=== PATIENT | female | born 1980 | race Caucasian/White ===

== ENCOUNTER 2020-04-18 08:09 | Emergency (ER) | payer OTHER, SELFPAY ==
--- NOTE | 2020-04-18 08:16 | ED.GENADULT ---
HPI - General Adult General Chief complaint: Skin/Abscess/Foreign Body Stated complaint: possible spider bite Time Seen by Provider: 04/18/20 08:28 Source: patient Mode of arrival: ambulatory Limitations: no limitations History of Present Illness HPI narrative: 3-year-old female patient presents to the [facility] with complaints of a wound to the middle of her back for x1 week. Patient states that she has not been able to reach the back so she has been putting anything on it. Patient states that she is not sure if it is a spider bite but it is causing increasing pain. Denies taking anything for the pain. Patient denies ever having an abscess before in the past. Patient denies any fevers, fatigue or body aches. Related Data Allergies Allergy/AdvReac Type Severity Reaction Status Date / Time famotidine Allergy Unknown Unknown Verified 02/08/20 09:49 Review of Systems Review of Systems: Narrative: CONSTITUTIONAL: Denies fever, chills, or sweats. EYES: Denies visual changes, redness, or discharge. ENT: Denies rhinorrhea, congestion, sore throat, or otalgia. CARDIOVASCULAR: Denies chest pain, palpitations, or edema. RESPIRATORY: Denies cough or dyspnea. GASTROINTESTINAL: Denies abdominal pain, nausea, vomiting, or diarrhea. GENITOURINARY: Denies dysuria or hematuria. SKIN: Denies rash or itching. Positive wound to middle of the back x1 week MUSCULOSKELETAL: Denies back pain, joint pain, or myalgia. NEUROLOGIC: Denies headache, numbness, or weakness. PSYCHIATRIC: Denies anxiety or depression. [facility] Past Medical History Medical History Cholecystectomy planned Surgical History Surgical History H/O dilation and curettage H/O tubal ligation Family History Family History Mother Family history of malignant neoplasm of uterus Family history of malignant neoplasm of ovary Other Family history of malignant neoplasm Social History Social History Smoking status: Current every day smoker Alcohol intake: never Gender identity (if verbalized by the patient): Female Comments At the time of my signature I agree with nursing past medical history, surgical, social, and family history. There is no relevant family history pertinent to the presenting complaint. Exam Narrative: Exam Narrative: GENERAL: Well-appearing, well-nourished, and in no acute distress. HEAD: Normocephalic, atraumatic. EYES: PERRLA and EOMI. ENT: Nares clear, no rhinorrhea or epistaxis. Mucous membranes moist. NECK: Supple. No lymphadenopathy CHEST: Clear to auscultation. No respiratory distress. HEART: Regular rate and rhythm. No murmur heard. Normal peripheral pulses. ABDOMEN: Soft, nontender, nondistended, normal active bowel sounds. EXTREMITIES: Normal range of motion. No edema. SKIN: Warm, dry, no rash. Patient has approximately 5 x 4 cm express care abscess noted to the middle of her back. It does feel slightly warm to the touch is raised with a located center. There is no open wounds or drainage noted at this time. NEURO: No focal deficits. Alert and oriented x3. Course Vital Signs Vital signs: Vital Signs Temperature 36.9 C 04/18/20 08:22 Pulse Rate 83 04/18/20 08:22 Respiratory Rate 16 04/18/20 08:22 Blood Pressure 106/89 04/18/20 08:22 Pulse Oximetry 100 04/18/20 08:22 Temperature 36.9 C 04/18/20 08:22 Pulse Rate 83 04/18/20 08:22 Respiratory Rate 16 04/18/20 08:22 Blood Pressure 106/89 04/18/20 08:22 Pulse Oximetry 100 04/18/20 08:22 Vital signs reviewed. Procedures Abscess I/D back: Date of Incision: 04/18/20 Time of Incision: 08:45 Local Anesthetic: lidocaine 1% Amount of anesthesia used (mL): 3 Technique: incised with #11 blade Irrigati
[2020-04-18 08:22] VITALS: BP 106/89; PULSE 83; RESP 16; TEMP 36.9; O2SAT 100
== END 2020-04-18 08:52 | disposition home or self-care (01) ==
PROVIDERS: Emergency Provider Nurse Practitioner Family; PCP Internal Medicine
DX: L02.212 Cutaneous abscess of back [any part, except buttock and flank] (principal)
CPT/HCPCS: 10061; 87070; 87075; 87076; 87205; 99213; G0463

== ENCOUNTER 2020-09-04 14:59 | Emergency (ER) | payer OTHER, SELFPAY ==
[2020-09-04 15:12] VITALS: BP 125/74; PULSE 109; RESP 16; TEMP 37.7; O2SAT 99
--- NOTE | 2020-09-04 15:12 | PC.NURSE ---
pt c/o LLQ abd pain and states it is not a UTI. pt states she will not stay here if we cannot test her appropriately. pt wishes to leave clinic and go to ED. Left the clinic from triage room
== END 2020-09-04 15:15 | disposition left against medical advice (07) ==
PROVIDERS: Emergency Provider Nurse Practitioner Family; PCP Internal Medicine
DX: Z53.21 Procedure and treatment not carried out due to patient leaving prior to being seen by health care provider (principal)
CPT/HCPCS: 99199

== ENCOUNTER 2021-03-02 18:04 | Emergency (ER) | payer SELFPAY ==
[2021-03-02 18:21] VITALS: BP 144/99; PULSE 108; RESP 18; TEMP 37; O2SAT 97
[2021-03-02 18:37] LABS: Basophils Percent Auto 0.4 % (0.2-1.2); Eosinophils Absolute Auto 0.2 K/mm3 (0-0.3); Eosinophils Percent Auto 2.2 % (0-4.4); Hematocrit 28.9 % (37.0-47.0); Hemoglobin 8.3 g/dL (12.0-15.0); Immature Granulocyte Absolute 0.05 K/mm3 (0.00-0.031); Immature Granulocyte Percent A 0.5 % (0-0.5); Lymphocytes Absolute Auto 2.15 K/mm3 (0.9-3.2); Lymphocytes Percent Auto 20.9 % (18.3-44.2); Mean Corpuscular HGB Conc 28.7 g/dl (32-36); Mean Corpuscular Hemoglobin 20.6 pg (26-34); Mean Corpuscular Volume 71.7 fl (80-100); Mean Platelet Volume 10.6 fl (7.4-10.4); Monocytes Absolute Auto 0.6 K/mm3 (0.1-0.6); Monocytes Percent Auto 5.3 % (2.6-8.5); Neutrophils Absolute Auto 7.3 K/mm3 (1.3-6.7); Neutrophils Percent Auto 70.7 % (45.5-73.1); Platelet Count Result 328 k/mm3 (150-375); Red Blood Count 4.03 M/mm3 (4.2-5.4); Red Cell Distribution Width 18.5 % (11.5-14.5); White Blood Count 10.3 K/mm3 (4.5-10.0)
[2021-03-02 18:46] LABS: Platelet Estimate Adequate (Adequate)
[2021-03-02 18:47] LABS: Hypochromasia 1+ (NORMAL)
[2021-03-02 19:05] LABS: Beta HCG Quantitative < 2.39 mIU/ML
--- NOTE | 2021-03-02 21:00 | PC.NURSE ---
Called lab to add on pt ptt and cmp
--- NOTE | 2021-03-02 21:02 | PC.NURSE ---
pt ambulatory to ED H3. c/o heavy vaginal bleeding x 4-5 days with clots larger than a quarter. also c/o lower abd cramping, left worse than right. hx of tubal ligation 12 years ago. denies home meds. denies past medical hx. last pap 12 years ago per pt.
[2021-03-02 21:06] VITALS: BP 150/113; PULSE 118; RESP 20; O2SAT 99
--- NOTE | 2021-03-02 21:15 | ED.FEMALEGU ---
HPI - Female Genitourinary General Chief complaint: Vaginal Bleeding Stated complaint: heavy vaginal bleeding Time Seen by Provider: 03/02/21 21:04 Source: patient Mode of arrival: ambulatory Limitations: no limitations History of Present Illness HPI Narrative: Patient is a 40-year-old female complaining of vaginal bleeding accompanied by lower abdominal cramping x4 days. Related Data Allergies Allergy/AdvReac Type Severity Reaction Status Date / Time famotidine Allergy Unknown Rash Verified 03/02/21 18:25 Review of Systems Review of Systems: All systems reviewed & are unremarkable except as noted in HPI and below Constitutional: Constitutional: Denies body ache(s), Denies chills, Denies excessive sweating, Denies fatigue, Denies fever(s), Denies headache(s), Denies lethargy, Denies malaise, Denies weakness and Denies weight loss Eyes: Eyes: Denies blurry vision, Denies change in vision and Denies loss of vision ENT: Denies dizziness, Denies ear discharge, Denies headache(s), Denies lip swelling, Denies epistaxis, Denies nasal congestion, Denies neck pain, Denies throat swelling and Denies tongue swelling Cardiovascular: Cardiovascular: Denies chest pain, Denies chest pain at rest, Denies chest pain with activity, Denies diaphoresis, Denies rapid heart rate, Denies edema, Denies irregular heart rhythm, Denies lightheadedness, Denies palpitations, Denies dyspnea and Denies dyspnea on exertion Respiratory: Respiratory: Denies chest congestion, Denies cough, Denies hemoptysis, Denies dyspnea and Denies dyspnea on exertion Gastrointestinal: Gastrointestinal: Denies abdominal pain, Denies melena, Denies hematochezia, Denies diarrhea, Denies nausea, Denies vomiting and Denies hematemesis Musculoskeletal: Musculoskeletal: Denies abnormal gait, Denies deformity, Denies joint swelling, Denies limited range of motion, Denies neck pain and Denies numbness Neurologic: Denies Abnormal speech present, Denies abnormal gait, Denies confusion, Denies dizziness, Denies headache(s), Denies focal weakness, Denies loss of vision, Denies numbness, Denies Other visual disturbances, Denies Sensory deficit (Neuro) and Denies weakness Psychiatric: Psychiatric: Denies confusion, Denies depression, Denies auditory hallucinations, Denies homicidal ideation and Denies suicidal ideation Endocrine: Endocrine: Denies cold intolerance, Denies excessive sweating, Denies fatigue, Denies heat intolerance and Denies palpitations Allergic/Immunologic: Allergic/Immunologic: Denies lip swelling, Denies throat swelling and Denies tongue swelling PMFSH Past Medical History Medical History (Updated 03/02/21 @ 23:15 by Hu Matt MD) Cholecystectomy planned Surgical History Surgical History H/O dilation and curettage H/O tubal ligation Family History Family History Mother Family history of malignant neoplasm of uterus Family history of malignant neoplasm of ovary Other Family history of malignant neoplasm Social History Social History Smoking status: Current every day smoker Alcohol intake: never Gender identity (if verbalized by the patient): Female Exam Const: General: cooperative, healthy appearing, comfortable, no acute distress, well developed, alert and awake; No confusion Orientation/consciousness: oriented to person, oriented to place, oriented to time, patient oriented x3 and No confusion Limitations: no limitations HENMT: Head: normal to inspection, normocephalic and atraumatic Ears: hearing grossly normal bilaterally, TM normal on the right and TM normal on the left General nose exam: Normal external nose present, Normal nares present and No nasal discharge present Face and sinus: normal facial exam Mouth: Yes Normal oral and palatal mucosa present, Yes lip misa
[2021-03-02 21:22] VITALS: BP 130/74; PULSE 74; O2SAT 100
[2021-03-02] MEDS: SODIUM CHLORIDE 0.9% IV 1,000 ML 999 ML IV CONT (21:39)
--- NOTE | 2021-03-02 22:26 | PC.NURSE ---
this RN called lab again to have them add on PT, PTT, CMP.
[2021-03-02 22:27] VITALS: BP 120/57; PULSE 75; RESP 18; O2SAT 100
[2021-03-02 22:38] LABS: Alanine Aminotransferase 14 U/L (4-35); Alkaline Phosphatase 95 U/L (38-126); Anion Gap 9 mmol/L (8-16); Aspartate Amino Transferase 21 U/L (14-36); Bilirubin,Total 0.1 mg/dL (0.2-1.3); Blood Urea Nitrogen 9 mg/dL (7-17); Calcium 8.8 mg/dL (8.4-10.2); Carbon Dioxide 22 mmol/L (22-30); Chloride 108 mmol/L (98-107); Estimated CRCL calculation 130 ml/min; Estimated Glomerular Filt Rate > 60; Glucose 115 mg/dL (65-105); Potassium 3.8 mmol/L (3.4-5.0); Sodium 139 mmol/L (137-145)
[2021-03-02 22:40] LABS: INR 0.9; Partial Thromboplastin Time 31.1 SECONDS (22.3-36.8)
== END 2021-03-03 00:16 | disposition home or self-care (01) ==
PROVIDERS: Emergency Medicine; Emergency Provider Emergency Medicine; PCP Internal Medicine
DX: N93.8 Other specified abnormal uterine and vaginal bleeding (principal); F17.200 Nicotine dependence, unspecified, uncomplicated
CPT/HCPCS: 36415; 80053; 84702; 85025; 85461; 85610; 85730; 96360; 99283; J7030

== ENCOUNTER 2022-08-27 17:51 | Emergency (ER) | payer SELFPAY ==
[2022-08-27 18:17] VITALS: BP 146/89; PULSE 89; RESP 16; TEMP 37.2; O2SAT 98
--- NOTE | 2022-08-27 19:15 | ED.GENADULT ---
HPI - General Adult General Chief complaint: Upper Respiratory Infection Stated complaint: sore throat Time Seen by Provider: 08/27/22 19:00 Source: patient, RN notes reviewed and old records reviewed Mode of arrival: ambulatory Limitations: no limitations History of Present Illness HPI narrative: 42-year-old female who presents to [facility] care with complaints of sore throat, headache, runny nose, body aches, chills, ear pain, cough, and nausea since Wednesday. Patient reports that she has been taking Ibuprofen and NyQuil for her symptoms, reports that she has not had COVID immunizations or flu shot. 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 MD complaint: sore throat, body aches, chills, headache, nausea, rhinitis, cough,ear pain Onset (ago): day(s) (2) Severity scale (1-10): 5 Quality: aching Treatments prior to arrival: NSAID and other (nyquil) Related Data Allergies Allergy/AdvReac Type Severity Reaction Status Date / Time famotidine Allergy Unknown Rash Verified 08/27/22 18:38 Review of Systems Review of Systems: CONSTITUTIONAL:Reports she has felt feverish, had chills or sweats. EYES: Denies visual changes, redness, or discharge. ENT: positive for rhinorrhea,sinus congestion, sore throat,bilateral otalgia. CARDIOVASCULAR: Denies chest pain, palpitations, or edema. RESPIRATORY: Positive for cough denies any acute dyspnea. GASTROINTESTINAL: Denies abdominal pain, nausea, vomiting, or diarrhea. GENITOURINARY: Denies dysuria or hematuria. SKIN: Denies rash or itching. MUSCULOSKELETAL: Denies back pain, joint pain, positive for body aches NEUROLOGIC: Positive for headache,no numbness, or weakness. PSYCHIATRIC: Denies anxiety or depression. All systems reviewed & are unremarkable except as noted in HPI and below PMFSH Past Medical History Medical History (Updated 08/31/22 @ 11:18 by Teresa Sauceda NP) Cholecystectomy planned Closed left ankle fracture Surgical History Surgical History (Updated 08/31/22 @ 11:03 by Teresa Sauceda NP) H/O dilation and curettage H/O tubal ligation History of cholecystectomy Family History Family History (Updated 08/31/22 @ 11:16 by Teresa Sauceda NP) Mother Family history of malignant neoplasm of uterus Family history of malignant neoplasm of ovary Grandparent Cerebrovascular accident Other Family history of malignant neoplasm Social History Social History (Updated 08/31/22 @ 11:21 by Teresa Sauceda NP) Smoking status: Former smoker Additional smoking assessment comments: quit 1 year ago 2020 Alcohol intake: never Substance use type: does not use Gender identity (if verbalized by the patient): Female Comments At time of signature, agree with nursing past medical, surgical, social and family history. There is no relevant family history pertinent to the presenting complaint Exam Narrative: GENERAL:ill-appearing, well-nourished,obese and in no acute distress. HEAD: Normocephalic, atraumatic. EYES: PERRLA and EOMI. ENT: Nares with red membranes clear rhinorrhea no epistaxis. Mucous membranes moist.TM's normal with good light reflex, throat with some redness no lesions or swelling,post nasal drainage. NECK: Supple.no lymphadenopathy CHEST: Clear to auscultation. No respiratory distress.SAO2 98% on room air, frequent cough HEART: Regular rate and rhythm. No murmur heard. Normal peripheral pulses. ABDOMEN: Soft, nontender, nondistended, normal active bowel sounds. EXTREMITIES: Normal range of motion. No edema. SKIN: Warm, dry, no rash. NEURO: No focal deficits. Alert and oriented x3. Course Course Level of Care: Express Care Visit Vital Signs Vital signs: Vital Signs Temperature 37.2 C 08/27/22 18:17 Pulse Rate 89 08/27/22 18:17 Respiratory Rate 16 08/27/22 18:17 Blood Pressure 146/89 H 08/27/22 18:17 Pulse Oximetry 98 08/27/22 18:17 Oxygen Delivery Room Air 08/27/22 18:17 Temperature 37.2 C 08/27/22 18:17 Pulse Rate 89 /
== END 2022-08-27 19:39 | disposition home or self-care (01) ==
PROVIDERS: Emergency Provider Registered Nurse; PCP Internal Medicine
DX: J10.1 Influenza due to other identified influenza virus with other respiratory manifestations (principal); Z20.822 Contact with and (suspected) exposure to COVID-19; Z87.891 Personal history of nicotine dependence
CPT/HCPCS: 87426; 87804; 99213; C9803; G0463

== ENCOUNTER 2023-08-27 10:40 | Outpatient (CLI) | payer OTHER, SELFPAY ==
--- NOTE | 2023-08-31 12:05 | WPDHOLTEREM ---
Holter/Event Monitor Holter/Event Monitor Date of procedure: 08/27/23 Holter/Event Procedure: 48 Hr Holter Monitor Indications: Syncope Conclusion: 1. 48 hour holter monitor on 08/27/23. 2. Underlying rhythm is sinus rhythm. HR range 41-164 bpm; average HR 76 bpm. HR at 41 bpm was at 06:30. HR at 164 bpm was at 14:29. 3. There are 84 premature supraventricular complexes, 12 supraventricular couplets, 1 supraventricular triplet and 3 supraventricular bigeminy. No supraventricular tachycardia. 4. No premature ventricular complexes. No ventricular tachycardia. 5. No sinoatrial or atrioventricular blocks. No significant pauses greater than 2 seconds. 6. Patient reports symptoms of chest pain and skipped beats but no time mentioned for correlation.
--- NOTE | 2023-08-31 13:38 | WPDNEUROLOGY ---
Neurology EEG Report General Information Date of Study: 09/26/23 TEST EEG DIAGNOSIS syncope and collapse CONDITION OF RECORDING awake drowsy and sleep EEG NUMBER [id number] CLINICAL HISTORY patient reported a couple of weeks ago she began feeling dizzy and as if she was going to faint went to the bathroom to run some cold water and became unconscious. EEG DESCRIPTION Basic resting occipital frequency consists of well organized low age 8 to 10 hertz per 2nd alpha admixed with low beta intermittently. regular EKG artifact is noted. Hyperventilation produced normal and symmetrical buildup without any evidence of focal slowing of paroxysmal discharge. Low-voltage beta activity seen diffusely with waxing and waning posterior alpha rhythm. Bilateral symmetrical sleep activity seen with normal and symmetrical sleep spindles. Photic stimulation produced normal drive. Hyper vent patient produced normal and symmetrical buildup. Non paroxysmal. Nonfocal. Nonlateralizing. IMPRESSION Normal record
== END 2023-08-27 10:41 | disposition home or self-care (01) ==
LOC: ANHNEURO 10:41
PROVIDERS: PCP Nurse Practitioner; Visit Provider Nurse Practitioner
DX: R55 Syncope and collapse (principal)
CPT/HCPCS: 93225; 93226; 95816

== ENCOUNTER 2024-02-11 14:57 | Outpatient (CLI) | payer OTHER, SELFPAY ==
--- NOTE | ~2024-02-11 | XR_ITS ---
XR ankle RT min 3V 02/11/2024 15:21 Indication: Right ankle pain Procedure: 4 views right ankle Comparison: 12/05/2012 Findings: There is an chronic medial malleolar fracture. Moderate lateral soft tissue swelling. There is a degenerative calcaneal enthesophyte. Ankle mortise intact. No acute fracture. Impression: 1: No acute bone or joint abnormality. Reviewed, dictated and finalized at location A. Impression: 1: No acute bone or joint abnormality.
== END 2024-02-11 14:58 | disposition home or self-care (01) ==
LOC: ANHIMG 14:59
PROVIDERS: PCP Nurse Practitioner; Visit Provider Nurse Practitioner
DX: M25.571 Pain in right ankle and joints of right foot (principal)
CPT/HCPCS: 73610

== ENCOUNTER 2024-03-04 10:43 | Outpatient (CLI) | payer OTHER, SELFPAY ==
--- NOTE | ~2024-03-04 | MM_ITS ---
EXAMINATION: MM screening russ BI w shira HISTORY: Screening mammogram TECHNIQUE: Craniocaudal and mediolateral oblique 3-D tomosynthesis images were obtained and synthetic 2-D images were generated. CAD analysis was submitted and interpreted. COMPARISON: No prior mammogram is available for comparison at this institution. BREAST PARENCHYMAL COMPOSITION: The breasts are almost entirely fatty. FINDINGS: There is an irregular approximately 5 x 10 mm density in the medial mid to upper right [address] at mid depth. No other suspicious mass or architectural distortion, malignant calcification, skin thickening or ret raction is detected. IMPRESSION: 1. Asymmetric 5 x 10 mm density in medial mid to upper right breast on CC projection 2. Diagnostic right mammogram and right breast ultrasound examination are recommended. BI-RADS Category 0: Incomplete: Needs additional imaging evaluation. Reviewed, dictated and finalized at location B. IMPRESSION: 1. Asymmetric 5 x 10 mm density in medial mid to upper right breast on CC proje ction 2. Diagnostic right mammogram and right breast ultrasound examination are recom mended. BI-RADS Category 0: Incomplete: Needs additional imaging evaluation.
== END 2024-03-04 10:44 | disposition home or self-care (01) ==
PROVIDERS: PCP Nurse Practitioner; Visit Provider Nurse Practitioner
DX: Z12.31 Encounter for screening mammogram for malignant neoplasm of breast (principal); R92.8 Other abnormal and inconclusive findings on diagnostic imaging of breast
CPT/HCPCS: 77063; 77067

== ENCOUNTER 2024-03-31 10:54 | Outpatient (CLI) | payer OTHER, SELFPAY ==
--- NOTE | ~2024-03-31 | MMUS_ITS ---
EXAMINATION: MM diagnostic russ RT w shira, US breast RT limited HISTORY: Asymmetric 5 x 10 mm opacity reported in the medial mid to upper right breast on screening c raniocaudal view of March 04, 2024 TECHNIQUE: Additional 3-D tomosynthesis images of the right breast were performed and synthetic 2-D i mages were generated. CAD analysis was submitted and interpreted. High resolution upper inner quadran t right breast ultrasound was performed. COMPARISON: March 04, 2024 bilateral screening mammogram FINDINGS: MAMMOGRAPHIC FINDINGS: Approximately 4.2 x 7.5 mm opacity is noted in the upper inner quadrant of the right breast. Margins are circumscribed and the density is relatively low. ULTRASOUND: 1:30 o'clock 6 cm from nipple: 3.6 x 2.9 x 3.6 mm circumscribed sonolucency consistent with small cys ts No suspicious mass or shadowing is detected. IMPRESSION: 1. Probably benign findings 2. Six-month diagnostic right mammogram and right breast ultrasound follow-up recommended BI-RADS category 3, probably benign findings. Reviewed, dictated and finalized at location A. IMPRESSION: 1. Probably benign findings 2. Six-month diagnostic right mammogram and right breast ultrasound follow-up r ecommended BI-RADS category 3, probably benign findings.
== END 2024-03-31 10:55 | disposition home or self-care (01) ==
LOC: ANHIMG 10:55
PROVIDERS: PCP Nurse Practitioner; Visit Provider Nurse Practitioner
DX: R92.8 Other abnormal and inconclusive findings on diagnostic imaging of breast (principal)
CPT/HCPCS: 76642; 77061; 77065; G0279

== ENCOUNTER 2024-04-14 00:18 | Day surgery (SDC) | payer OTHER, SELFPAY ==
[2024-04-07 11:55] VITALS: BMI 47.5
--- NOTE | 2024-04-07 11:57 | PC.NURSE ---
Report to the Outpatient Waiting Room, entrance under the green pavilion located off [facility], at time _0700_ on date _04/14/2024_. Planned Procedure Time: _0900_. Time changes happen often and if your time is changed the preop area will call you the afternoon before. - You and your visitor will be asked to self-screen and do not enter if you have any COVID symptoms. - A mask is optional within the hospital at this time. Patients may have clear liquids (water, carbonated beverages, clear teas, apple juice) until 3 hours prior to surgery with a maximum of 20 ounces. - No food from midnight until time of surgery Take the following medications with a SIP of water the morning of surgery: __None DO NOT STOP ANY OF YOUR OTHER PRESCRIPTION MEDICATIONS PRIOR TO SURGERY ?EXCEPT THE FOLLOWING Medications to discontinue per physician None Date to take last dose Please no make-up, nail turkish, hairspray, perfume, deodorant, or body powder the day of surgery. No jewelry (including any body piercings) or valuables the day of surgery, leave them at home. Please take a shower or bath the night before, or the morning of, surgery with an antibacterial soap. Wear comfortable, loose fitting clothing. - Jewelry must be removed prior to entering the operating room. Rings and piercings that are not removed may be cut off. - The hospital will not accept responsibility for valuables. - Please leave all valuables, including medications, at home the day of surgery. If you are going home after surgery, a licensed armored car driver must drive you home. - NO public transportation without another adult if you receive anesthesia. - We recommend that an adult stay with you for 24 hours following discharge. - We also recommend that you do not drive, make important decision, drink alcoholic beverages, or take any drugs that were not prescribed by your health care provider for at least 24 hours after your discharge time. Follow any additional instructions given to you from your surgeon. If you or anyone in your household have experienced Covid symptoms in the past week, please notify your surgeon or the nurse liaison at the phone number below for possible testing. Telephone instructions given to __Lilian__and asked if any additional questions and then verbalized understanding. Patient advised to call surgeon office or pre surgery nurse liaison [phone] if any additional questions.
[2024-04-14] VITALS (9 sets, daily range): BP systolic 88–127; BP diastolic 55–90; PULSE 45–87; RESP 12–16; TEMP 36.3; O2SAT 98–100; BMI 46.8
[2024-04-14] MEDS: LACTATED RINGERS 1,000 ML 30 ML IV CONT ×2 (07:30→10:31)
[2024-04-14] MEDS: ACETAMINOPHEN 500 MG TABLET 1000 MG PO (07:37)
--- NOTE | 2024-04-14 08:33 | PM.IMHP ---
H&P: HPI History of Present Illness Date/Time: 04/14/24 08:33 Chief Complaint: Amenorrhea Narrative: 43-year-old female with thickened endometrium and amenorrhea. We have agreed to perform hysteroscopy D&C. She understands the procedure. Has been explained her in detail. She understands the risk. She understands that injuries may occur that result in hospitalization, more surgery, and severe illness. She understands risk of hemorrhage infection. She denies any nausea, vomiting, fever, chills. She denies any chest pain or shortness of breath. Review of Systems Review of Systems: All systems reviewed & are unremarkable except as noted in HPI and below Constitutional: Constitutional: Denies chills, Denies fatigue, Denies fever(s) and Denies weakness Eyes: Eyes: Denies blurry vision, Denies change in vision, Denies loss of peripheral vision, Denies loss of vision, Denies other visual disturbances and Denies eye pain ENT: Denies vertigo, Denies dizziness, Denies hearing loss, Denies mouth pain, Denies nasal obstruction, Denies neck mass and Denies neck pain Cardiovascular: Cardiovascular: Denies chest pain, Denies diaphoresis, Denies syncope, Denies leg edema and Denies dyspnea Respiratory: Respiratory: Denies chest congestion, Denies cough, Denies hemoptysis, Denies dyspnea and Denies wheezing Gastrointestinal: Gastrointestinal: Denies abdominal pain, Denies constipation, Denies diarrhea, Denies nausea and Denies vomiting Genitourinary: Genitourinary: Denies hematuria, Denies change in libido, Denies nocturia, Denies genital lesions, Denies flank pain and Denies urinary urgency Musculoskeletal: Musculoskeletal: Denies abnormal gait, Denies back pain, Denies myalgias, Denies arthralgias, Denies joint swelling, Denies muscle weakness and Denies neck pain Integumentary/Breasts: Skin/Breast: Denies swelling, Denies breast pain, Denies breast mass, Denies dry skin, Denies nipple discharge, Denies unusual bruising and Denies jaundice Neurologic: Denies Neuro-related abnormal movements, Denies Abnormal speech present, Denies abnormal gait, Denies behavioral changes, Denies confusion, Denies vertigo, Denies dizziness, Denies syncope, Denies loss of vision, Denies memory loss, Denies convulsions and Denies weakness Psychiatric: Psychiatric: Denies abnormal sleep pattern, Denies behavioral changes, Denies change in libido, Denies confusion, Denies depression, Denies anhedonia and Denies memory loss Endocrine: Endocrine: Reports no additional endocrine complaints, Denies change in libido and Denies fatigue Hematologic/Lymphatic: Hematologic/Lymphatic: Reports no additional hematologic/lymphatic complaints Allergic/Immunologic: Allergic/Immunologic: Reports no additional allergic/immunologic complaints and Denies wheezing PMFSH Past Medical History Medical History Cholecystectomy planned Closed left ankle fracture Surgical History Surgical History H/O dilation and curettage H/O tubal ligation History of cholecystectomy Family History Family History Mother Family history of malignant neoplasm of uterus Family history of malignant neoplasm of ovary Grandparent Cerebrovascular accident Other Family history of malignant neoplasm Social History Social History Smoking packs per day: 1 Smoking cigarettes per day: 20.0 Years smoked: 20 Smoking pack-years: 20.00 Smoking status: Former smoker Tobacco type: cigarettes Smoking end date: 04/07/22 Additional smoking assessment comments: quit 1 year ago 2020 Alcohol intake: never Substance use: never Substance use type: does not use Lack of Transportation: No Lack of Food: Sometimes True Current Housing: I Have Housing Concerned About Future H
--- NOTE | 2024-04-14 08:36 | P.PNAN_ITS ---
Anes - Initial Pre Proc Eval Procedure: Operation Date: 04/14/24 09:00 Proposed Procedures p Hysteroscopy with Biopsy of Endometrium and/or Polypectomy - Charles Jamil MD Date/Time: 04/14/24 08:36 Surgeon: Charles Jamil MD Pre Op Diagnosis: Lesion of Endometrium Patient Data Age: 43 Gender: F Height: 1.8 m Weight: 152.4 kg Allergies Allergy/AdvReac Type Severity Reaction Status Date / Time famotidine Allergy Mild Rash Verified 04/14/24 07:42 Home Medications Medication Instructions Recorded Confirmed Type No Home Medications 04/07/24 04/07/24 History Patient hx anesthesia problems: none Family hx anesthesia problems: none Results Review: All pre-operative results and documents have been reviewed as part of the pre- operative evaluation. [facility] Past Medical History Medical History Cholecystectomy planned Closed left ankle fracture Surgical History Surgical History H/O dilation and curettage H/O tubal ligation History of cholecystectomy Family History Family History Mother Family history of malignant neoplasm of uterus Family history of malignant neoplasm of ovary Grandparent Cerebrovascular accident Other Family history of malignant neoplasm Social History Social History Smoking packs per day: 1 Smoking cigarettes per day: 20.0 Years smoked: 20 Smoking pack-years: 20.00 Smoking status: Former smoker Tobacco type: cigarettes Smoking end date: 04/07/22 Additional smoking assessment comments: quit 1 year ago 2020 Alcohol intake: never Substance use: never Substance use type: does not use Lack of Transportation: No Lack of Food: Sometimes True Current Housing: I Have Housing Concerned About Future Housing: No Difficulty Paying Gas/Electric Bills: YES Difficulty Paying for Meds: No Currently Unemployed: No Education: High School Diploma/GED Difficulty w/ Childcare or Family Care: No Living arrangements: with family Gender identity (if verbalized by the patient): Female Spiritual care concerns: No Anes - Eval Final PreProcedure Day of Procedure 04/14/24 08:36 Patient weight: morbidly obese Heart: regular rate and rhythm Lungs: clear to auscultation Neurological: alert and oriented Last oral intake: >/= 8 hours ASA classification: III Emergent: no Anesthetic plan: proceed Anesthesia type and monitoring: general LMA and standard monitoring Results Review: All pre-operative results and documents have been reviewed as part of the pre- operative evaluation. Pt ex smoker, quit 2021. Informed Consent: The patient's anesthetic plan and its attendant risks and benefits were discussed with the patient/family/POA. Questions were solicited and answers provided to the satisfaction of the patient/family/POA.
--- NOTE | 2024-04-14 08:37 | WPDHPUPDATE1 ---
History and Physical Update Update Date/Time: 04/14/24 08:37 History and Physical has been reviewed, including an updated exam of the patient. There are NO changes in the patient's condition. Risks, benefits, and alternatives have been discussed and questions answered. Patient agrees to proceed with procedure.
[2024-04-14] MEDS: LIDOCAINE HCL 1% LOCAL INJ 20 ML VIAL 10 ML INFILTRATE (09:01)
--- NOTE | 2024-04-14 09:38 | W.PM.PROC2 ---
Procedure Note - Detailed Date of Procedure 04/14/24 Pre-op Diagnosis Lesion of Endometrium Post-op Diagnosis Same Procedure Performed Hysteroscopy D&C Surgeon Charles Jamil MD Anesthesia MAC Indications abnormal uterine bleeding Findings Redundant thickened endometrium, irregular, vacuolated, normal vulva, vagina and cervix. Description of Procedure the patient was taken the operating room. She was prepped and draped in the dorsal lithotomy position after induction of mac anesthesia. A speculum was placed in the vagina. The cervix was grasped with a tenaculum. The cervix was dilated about 1 cm. The hysteroscope was inserted. The intrauterine cavity and endocervix were evaluated. Hysteroscope was withdrawn. A medium-size curette was used to curettage all the surfaces were within the endometrial cavity. the sample was collected on Telfa and sent to pathology. The hysteroscope was reinserted and the above findings were noted. Patient tolerated the procedure well. The speculum and tenaculum were removed. She was taken recovery room in stable condition. Sponge lap and needle counts were correct x2. Estimated Blood Loss 40 Drains No Packing No Pathology Yes Complications No immediate complications Condition Stable Disposition PACU
[2024-04-14] MEDS: HYDROmorphone HCL INJ (*CRX) 1 MG/ML SYR 0.25 MG IV PUSH ×5 (09:57→10:25)
[2024-04-14] MEDS: MIDAZOLAM HCL (*CRX) 2 MG/2 ML VIAL 1 MG IV PUSH (10:10)
[2024-04-14] MEDS: oxyCODONE HCL (*CRX) 5 MG TAB IR PO (10:55)
== END 2024-04-14 11:43 | disposition home or self-care (01) ==
PROVIDERS: PCP Nurse Practitioner; Visit Provider Obstetrics & Gynecology
PROC: 0U5B8ZZ Destruction of Endometrium, Via Natural or Artificial Opening Endoscopic (ICD-10-PCS; CPT 58563; principal; 2024-04-14 09:00)
DX: N85.02 Endometrial intraepithelial neoplasia [EIN] (principal); Z87.891 Personal history of nicotine dependence; E66.01 Morbid (severe) obesity due to excess calories; Z68.42 Body mass index [BMI] 45.0-49.9, adult
CPT/HCPCS: 58558; 88305; A9270; J1100; J1170; J2250; J2405; J2704; J3010; J7120

== ENCOUNTER 2024-04-24 16:08 | Emergency (ER) | payer OTHER, SELFPAY ==
--- NOTE | ~2024-04-24 | XR_ITS ---
XR foot RT min 3V 04/24/2024 16:49 Indication: Right hand pain Procedure: 4 views right foot Comparison: No prior studies for comparison. Findings: No fracture, subluxation or dislocation. Lisfranc joint intact. There are degenerative calc aneal enthesophytes. No focal soft tissue abnormality. No foreign bodies. Impression: 1: No acute fracture Reviewed, dictated and finalized at location A. Impression: 1: No acute fracture
[2024-04-24 16:23] VITALS: BP 137/83; PULSE 83; RESP 16; TEMP 37.1; O2SAT 98
--- NOTE | 2024-04-24 16:31 | ED.GENADULT ---
HPI - General Adult General Chief complaint: Extremity Injury, Lower Stated complaint: Right Foot Pain Source: patient Mode of arrival: ambulatory Limitations: no limitations History of Present Illness HPI narrative: 43 y/o female presented for c/o right great toe pain and bloody drainage around the nail for2 days. Endorses she had all toes stepped on 2 weeks ago at a concert. since then she has had great toe pain, bruising, and mild swelling. Has applied peroxide to the toe since it started draining. Reports normal range of motion. Denies deformity. Related Data Allergies Allergy/AdvReac Type Severity Reaction Status Date / Time famotidine Allergy Mild Rash Verified 04/24/24 16:50 Review of Systems Review of Systems: CONSTITUTIONAL: Denies body aches, fever, chills, or sweats. CARDIOVASCULAR: Denies chest pain, palpitations, or edema. RESPIRATORY: Denies cough or dyspnea. GASTROINTESTINAL: Denies abdominal pain, nausea, vomiting, or diarrhea. SKIN: reports swelling and bruising, toe drainage MUSCULOSKELETAL: Denies back pain NEUROLOGIC: Denies headache, numbness, tingling, or weakness. [facility] Past Medical History Medical History Cholecystectomy planned Closed left ankle fracture Surgical History Surgical History H/O dilation and curettage H/O tubal ligation History of cholecystectomy Family History Family History Mother Family history of malignant neoplasm of uterus Family history of malignant neoplasm of ovary Grandparent Cerebrovascular accident Other Family history of malignant neoplasm Social History Social History Smoking packs per day: 1 Smoking cigarettes per day: 20.0 Years smoked: 20 Smoking pack-years: 20.00 Smoking status: Former smoker Tobacco type: cigarettes Smoking end date: 04/07/22 Additional smoking assessment comments: quit 1 year ago 2020 Alcohol intake: never Substance use: never Substance use type: does not use Lack of Transportation: No Lack of Food: Sometimes True Current Housing: I Have Housing Concerned About Future Housing: No Difficulty Paying Gas/Electric Bills: YES Difficulty Paying for Meds: No Currently Unemployed: No Education: High School Diploma/GED Difficulty w/ Childcare or Family Care: No Living arrangements: with family Gender identity (if verbalized by the patient): Female Spiritual care concerns: No Comments At time of signature, I have reviewed and agree with nursing past medical, surgical, social and family history unless otherwise noted. Please see nursing chart for further information. There is no relevant family history pertinent to the presenting complaint Exam Narrative: GENERAL: Well-appearing ENT: Mucous membranes moist. Oropharynx without edema, erythema or lesions. CHEST: Clear to auscultation. HEART: Regular rate and rhythm. SKIN: Warm, dry. Right great toe with mild swelling and bruising to the base of the nail, draining purulent discharge and blood around nail; Tender to IP joint; minimal subungual hematoma; toe skin is cool, no fluctuance or induration. CMS intact. NEURO: Alert and oriented x3. Extrem: Hand/finger images: 1. right Great TOE area of bruising, swelling and drainage Course Course Emergency Course: Patient is aware of diagnosis, understands and agrees to treatment plan. Anticipatory guidance given. Patient agrees to follow-up as directed and is aware of reasons to seek care at the emergency department. Portions of this record may have been created with voice recognition software Level of Care: Express Care Visit Vital Signs Vital signs: Vital Signs Temperature 98.8 F 04/24/24 16:23 Pulse Rate 83 04/24/24 16:23 Respiratory
== END 2024-04-24 17:09 | disposition home or self-care (01) ==
PROVIDERS: Emergency Provider Nurse Practitioner Family; PCP Nurse Practitioner
DX: L03.031 Cellulitis of right toe (principal); Z87.891 Personal history of nicotine dependence
CPT/HCPCS: 73630; 99213; G0463

== ENCOUNTER 2024-08-03 18:28 | Emergency (ER) | payer OTHER, SELFPAY ==
[2024-08-03 18:42] VITALS: BP 141/75; PULSE 105; RESP 20; TEMP 37.1; O2SAT 99
--- NOTE | 2024-08-03 19:11 | ED.EXTPRO ---
HPI - Extremity Problem General Chief complaint: Extremity Problem,Nontraumatic Stated complaint: Right Knee Pain Time Seen by Provider: 08/03/24 19:11 Source: patient, RN notes reviewed and old records reviewed Mode of arrival: ambulatory Limitations: no limitations History of Present Illness HPI Narrative: 44-year-old female presents to the [facility] with right posterior knee pain for 1-2 days. Reports swelling just to the posterior knee. No bruising swelling noted. Denies injury. Does have full range of motion Onset (ago): day(s) (1-2) Related Data Allergies Allergy/AdvReac Type Severity Reaction Status Date / Time famotidine Allergy Mild Rash Verified 08/03/24 18:36 Review of Systems Review of Systems: All systems reviewed & are unremarkable except as noted in HPI and below Constitutional: Constitutional: Reports no additional constitutional complaints Eyes: Eyes: Reports no additional eye complaints ENT: Reports system reviewed and no additional complaints, except as documented Cardiovascular: Cardiovascular: Reports no additional cardiovascular complaints, Denies chest pain and Denies dyspnea Respiratory: Respiratory: Reports no additional respiratory complaints, Denies chest congestion, Denies cough and Denies dyspnea Gastrointestinal: Gastrointestinal: Reports no additional gastrointestinal complaints, Denies abdominal pain, Denies nausea and Denies vomiting Musculoskeletal: Musculoskeletal: Reports as per HPI and Reports arthralgias Integumentary/Breasts: Skin/Breast: Reports system reviewed and no additional complaints, except as docu Neurologic: Reports system reviewed and no additional complaints, except as documented Psychiatric: Psychiatric: Reports no additional psychiatric complaints Allergic/Immunologic: Allergic/Immunologic: Reports no additional allergic/immunologic complaints [facility] Past Medical History Medical History Cholecystectomy planned Closed left ankle fracture Surgical History Surgical History H/O dilation and curettage H/O tubal ligation History of cholecystectomy Family History Family History Mother Family history of malignant neoplasm of uterus Family history of malignant neoplasm of ovary Grandparent Cerebrovascular accident Other Family history of malignant neoplasm Social History Social History Smoking packs per day: 1 Smoking cigarettes per day: 20.0 Years smoked: 20 Smoking pack-years: 20.00 Smoking status: Former smoker Tobacco type: cigarettes Smoking end date: 04/07/22 Additional smoking assessment comments: quit 1 year ago 2020 Alcohol intake: never Substance use: never Substance use type: does not use Lack of Transportation: No Lack of Food: Sometimes True Current Housing: I Have Housing Concerned About Future Housing: No Difficulty Paying Gas/Electric Bills: YES Difficulty Paying for Meds: No Currently Unemployed: No Education: High School Diploma/GED Difficulty w/ Childcare or Family Care: No Living arrangements: with family Gender identity (if verbalized by the patient): Female Spiritual care concerns: No Comments At the time of my signature, I reviewed and agree with the nursing past medical, surgical, social, and family history. There is no relevant family history pertinent to the patient complaint. Exam Const: General: cooperative, healthy appearing, comfortable, no acute distress, well developed, alert and well nourished Nutritional Appearance: well nourished and obese Orientation/consciousness: patient oriented x3 Limitations: no limitations HENMT: Head: normal to inspection Ears: hearing grossly normal bilaterally and external ears normal Face/Nose/Sinus: Normal external no
== END 2024-08-03 19:35 | disposition home or self-care (01) ==
PROVIDERS: Emergency Provider Nurse Practitioner; PCP Nurse Practitioner
DX: M71.21 Synovial cyst of popliteal space [Baker], right knee (principal); Z87.891 Personal history of nicotine dependence
CPT/HCPCS: 99213; G0463

== ENCOUNTER 2024-08-19 15:19 | Emergency (ER) | payer OTHER, SELFPAY ==
[2024-08-19 15:26] VITALS: BP 114/89; PULSE 76; RESP 16; TEMP 37.1; O2SAT 99
--- NOTE | 2024-08-19 16:00 | ED.GENADULT ---
HPI - General Adult General Chief complaint: Head Injury Stated complaint: Left Side Facial Pain Time Seen by Provider: 08/19/24 16:02 Source: patient, RN notes reviewed and old records reviewed Mode of arrival: ambulatory Limitations: no limitations History of Present Illness HPI narrative: 44-year-old female presents to the [facility] with left-sided face pain after being hit by a door Patient states that she has taken ibuprofen is been icing it. Related Data Home Medications Medication Instructions Recorded Confirmed estradiol 0.0375 mg/24 hr See Rx Instructions .Route .COMPLEX 08/19/24 08/19/24 semiweekly transdermal patch (Marlyn) Allergies Allergy/AdvReac Type Severity Reaction Status Date / Time famotidine Allergy Mild Rash Verified 08/19/24 15:48 Review of Systems Review of Systems: All systems reviewed & are unremarkable except as noted in HPI and below Constitutional: Constitutional: Reports no additional constitutional complaints Eyes: Eyes: Reports no additional eye complaints ENT: Reports as per HPI Cardiovascular: Cardiovascular: Reports no additional cardiovascular complaints, Denies chest pain and Denies dyspnea Respiratory: Respiratory: Reports no additional respiratory complaints, Denies chest congestion, Denies cough and Denies dyspnea Gastrointestinal: Gastrointestinal: Reports no additional gastrointestinal complaints, Denies abdominal pain, Denies nausea and Denies vomiting Musculoskeletal: Musculoskeletal: Reports no additional musculoskeletal complaints Integumentary/Breasts: Skin/Breast: Reports system reviewed and no additional complaints, except as docu Neurologic: Reports system reviewed and no additional complaints, except as documented Psychiatric: Psychiatric: Reports no additional psychiatric complaints Allergic/Immunologic: Allergic/Immunologic: Reports no additional allergic/immunologic complaints [facility] Past Medical History Medical History Cholecystectomy planned Closed left ankle fracture Surgical History Surgical History H/O dilation and curettage H/O tubal ligation History of cholecystectomy Family History Family History Mother Family history of malignant neoplasm of uterus Family history of malignant neoplasm of ovary Grandparent Cerebrovascular accident Other Family history of malignant neoplasm Social History Social History Smoking packs per day: 1 Smoking cigarettes per day: 20.0 Years smoked: 20 Smoking pack-years: 20.00 Smoking status: Former smoker Tobacco type: cigarettes Smoking end date: 04/07/22 Additional smoking assessment comments: quit 1 year ago 2020 Alcohol intake: never Substance use: never Substance use type: does not use Lack of Transportation: No Lack of Food: Sometimes True Current Housing: I Have Housing Concerned About Future Housing: No Difficulty Paying Gas/Electric Bills: YES Difficulty Paying for Meds: No Currently Unemployed: No Education: High School Diploma/GED Difficulty w/ Childcare or Family Care: No Living arrangements: with family Gender identity (if verbalized by the patient): Female Spiritual care concerns: No Comments At the time of my signature, I reviewed and agree with the nursing past medical, surgical, social, and family history. There is no relevant family history pertinent to the patient complaint. Exam Const: General: cooperative, healthy appearing, comfortable, no acute distress, well developed, alert and well nourished Nutritional Appearance: well nourished and obese Orientation/consciousness: patient oriented x3 Limitations: no limitations HENMT: Head: normal to inspection, No palpable skull fracture present, atraumatic, no a
== END 2024-08-19 16:22 | disposition home or self-care (01) ==
PROVIDERS: Emergency Provider Nurse Practitioner; PCP Nurse Practitioner
DX: S00.83XA Contusion of other part of head, initial encounter (principal); W20.8XXA Other cause of strike by thrown, projected or falling object, initial encounter
CPT/HCPCS: 99213; G0463

== ENCOUNTER 2025-06-11 01:15 | Day surgery (SDC) | payer OTHER, SELFPAY ==
[2025-05-22 15:03] VITALS: BMI 46.0
--- OUTSIDE RECORDS SUMMARY | 2025-06-11 01:17 | XMS_ITS | Continuity of Care Document ---
Author Organization [employer] Address [address] [facility] [address] [place] [address] Phone Care Team Providers Care Environmental Programs Specialist Name Role Phone Easton Robles PT Unavailable Unavailable Procedures Procedure Date Neuromuscular Re-Ed Therapeutic Activities Therapeutic Exercise Manual Therapy Neuromuscular Re-Ed Therapeutic Activities Progress Note Hot or Cold Pack Manual Therapy Therapeutic Exercise Therapeutic Activities Neuromuscular Re-Ed Therapeutic Exercise Manual Therapy Hot or Cold Pack Neuromuscular Re-Ed Therapeutic Activities Progress Note Manual Therapy Therapeutic Exercise Therapeutic Activities Hot or Cold Pack Manual Therapy Therapeutic Exercise Neuromuscular Re-Ed Therapeutic Activities Neuromuscular Re-Ed Therapeutic Exercise Manual Therapy Hot or Cold Pack Progress Note Therapeutic Activities Neuromuscular Re-Ed Therapeutic Exercise Manual Therapy Hot or Cold Pack Therapeutic Activities Neuromuscular Re-Ed Therapeutic Exercise Manual Therapy Hot or Cold Pack Neuromuscular Re-Ed Therapeutic Activities Manual Therapy Therapeutic Exercise Hot or Cold Pack Therapeutic Activities Hot or Cold Pack Manual Therapy Therapeutic Exercise Neuromuscular Re-Ed Therapeutic Exercise Neuromuscular Re-Ed PT Evaluation Low Complexity Hot or Cold Pack Therapeutic Activities Neuromuscular Re-Ed Therapeutic Exercise Manual Therapy Therapeutic Activities Neuromuscular Re-Ed Therapeutic Exercise Therapeutic Activities Neuromuscular Re-Ed Therapeutic Exercise Manual Therapy Therapeutic Activities Neuromuscular Re-Ed Therapeutic Exercise Manual Therapy Therapeutic Activities Neuromuscular Re-Ed Therapeutic Exercise Manual Therapy Therapeutic Activities Neuromuscular Re-Ed Therapeutic Exercise Manual Therapy Therapeutic Activities Neuromuscular Re-Ed Therapeutic Exercise Therapeutic Activities Neuromuscular Re-Ed Manual Therapy Therapeutic Activities Neuromuscular Re-Ed Manual Therapy Therapeutic Exercise Therapeutic Activities Neuromuscular Re-Ed Therapeutic Exercise Manual Therapy Therapeutic Activities Neuromuscular Re-Ed Manual Therapy Therapeutic Exercise Electrical Stimulation Hot or Cold Pack Neuromuscular Re-Ed Manual Therapy Therapeutic Exercise Hot or Cold Pack Electrical Stimulation Therapeutic Activities Neuromuscular Re-Ed Therapeutic Exercise Manual Therapy Hot or Cold Pack Electrical Stimulation Therapeutic Activities Neuromuscular Re-Ed Manual Therapy Hot or Cold Pack Electrical Stimulation Therapeutic Activities Neuromuscular Re-Ed Hot or Cold Pack Manual Therapy Therapeutic Exercise Therapeutic Activities Neuromuscular Re-Ed Therapeutic Exercise Hot or Cold Pack Manual Therapy Electrical Stimulation Progress Note Therapeutic Activities Therapeutic Exercise Neuromuscular Re-Ed Manual Therapy Hot or Cold Pack Therapeutic Activities Neuromuscular Re-Ed Therapeutic Exercise Manual Therapy Hot or Cold Pack PT Evaluation Moderate Complexity Therapeutic Activities Neuromuscular Re-Ed Manual Therapy Therapeutic Exercise Hot or Cold Pack Electrical Stimulation Advance Directives Directive Yes / No Effective Date File Name No Information Encounters Encounter Description Practice Location Reason(s) For Visit Diagnoses Date Provider Providers Copied on Encounter [facility], [place], [place], [id number], tel:[phone] [place] No Information 2 Margaret Mccormack. . Referring Provider: Jonn Galicia, [address] [facility] [address], [place], [address]. tel:[phone] [facility], [place], [place], [id number], [place] tel:[phone] [place] No Information 2 Essner Harsh. . Referring Provider: Jonn Galicia [address], [place], [address]. tel:[phone] [facility], [address] [place] [address] [address], [place], [place], [id number], tel:[phone] [place] No Information 2 Essner Harsh. . Referring Provider: Jonn Galicia [address], [place], [address]. tel:[phone], [place], [place], [id number], tel:[phone] [place] No Information 2 Essner Harsh. . Referring Provider: Jonn Galicia [address], [place], [address]. tel:[phone] [facility], [address] [place] [address] [address], [place], [place], [address], [place] tel:[phone] [place] No Information 2 Essner Harsh. . Referring Provider: Jonn Galicia [address], [place], [address]. tel:[phone], [place], [place], [id number], [place] tel:[phone] [place] No Information 2 Essner Harsh. . Referring Provider: Jonn Galicia [address], [place], [address]. tel:[phone], [place], [place], [address], [place] tel:[phone] [place] No Information 2 Essner Harsh. . Referring Provider: Jonn Galicia [address], [place], [address]. tel:[phone] [place] [address], [place], [place], [address], [place] tel:[phone] [place] No Information May-1 2-202 2 [facility] House. . Referring Provider: Jonn Galicia, [address], [place], [address]. tel:[phone] [facility], [address], [place], [place], [id number], [place] tel:[phone] [place] No Information May-1 0-202 2 [facility]. . Referring Provider: Jonn Galicia, [address], [place], [address]. tel:[phone] [facility], [address], [place], [place], [id number], tel:[phone] [place] No Information May-0 5- 2 [facility]. . Referring Provider: Jonn Galicia [address], [place], [address]. tel:[phone] [facility], [address], [place], [place], [address], [place] tel:[phone] [place] No Information May-0 3- 2 [facility]. . Referring Provider: Jonn Galicia, [address], [place], [address]. tel:[phone] [facility], [place], [place], [address], [place] tel:[phone] [place] No Information Dec-1 7-201 9 Adrien Mary. . [facility], [place], [place], [address], [place] tel:[phone] [place] No Information Dec-1 0-201 9 Adrien Mary. . [facility], [address], [place], [place], [address], [place] tel:[phone] [place] No Information Dec-0 3-201 9 Adrien Mary. . [facility], [place], [place], [address], [place] tel:[phone] [place] No Information 2 9 Dannyburgh Usman. . [facility], [place], [place], [address], [place] tel:[phone] [place] No Information 2 9 [place] Usman. . [facility], [place], [address], [place] tel:[phone] [place] No Information 9 [place] Usman. . [facility], [place], [place], [address], [place] tel:[phone] [place] No Information 9 Adrien Mary. . [facility], [place], [place], [address], [place] tel:[phone] [place] No Information Sep-0 9 Adrien Mary. . [facility], [place], [address], [place] tel:[phone] [place] No Information 0 9 Adrien Mary. . [facility], [place], [address], [place] tel:[phone] [place] No Information 3 9 [place] Usman. . [facility], [place], [address], [place] tel:[phone] [place] No Information 9 [place] Usman. . [facility], [place], [place], [address], [place] tel:[phone] [place] No Information 9 Cliff Das [address] [facility], [place], [address], [place]. tel:[phone] [facility], [address] [place] [address], [id number], tel:[phone] [place] No Information Aug-2 4- 9 Adrien Mary. . [facility], [id number], tel:[phone] [place] No Information Aug- 5- 9 Adrien Mary. . [facility] [address], [id number], tel:[phone] [place] No Information Aug-1 0- 9 Adrien Mary. . [facility], [id number], tel:[phone] [place] No Information Aug-0 8- 9 Adrien Mary. . [facility] [address], [id number], tel:[phone] [place] No Information Aug-0 3- 9 Adrien Mary. . [facility], [id number], tel:[phone] [place] No Information Aug-0 1- 9 Adrien Mary. . [facility] [address], [id number], tel:[phone] [place] [address] No Information Jul-2 9 Adrien Mary. . Family History Family Member Type Diagnosis Age At Onset No Information Payers Payer name Insurance type Covered constitution party ID Authoriza tisaurabh(s) [employer] SP [id number] Social History Type Description Quantity Date Captured Comments Sex Female Smoking Status No Information Chief Complaint And Reason For Visit No Information Reason For Referral Reason For Referral No Information Plan Of Treatment Date Type Action Status Referral Ordered: PCP timeframe: 1 week. (related to Overweight) ordered Referral Ordered: Weight management: Referral to physician timeframe: 1 Month. (related to Overweight) ordered History Of Present Illness Encounter Date Complaint History Of Prese nt Illness No Information Functional Status Date Functional Assessmen t No Information Instructions Date Instruction Additional Infor mation No Information Assessments Type Assessment Date No Information Patient Care Teams Name Effective Dates (start - stop) Status Members No Information
--- OUTSIDE RECORDS SUMMARY | 2025-06-11 01:17 | XMS_ITS ---
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 Final pathology with focal FIGO grade 1 endometrioid adenocarcinoma arising in background of CAH, confined to the endometrium, without LVSI. - 07/19/24: 2 week post-op visit. Well-healing port sites. Pathology reviewed. Discussed r/b/a for HRT vs venlafaxine. Discussed overall very low risk for starting HRT given cancer confined to endometrium and uterus now removed, however, non- zero chance that cancer stimulated by estrogen therapy given ER+ on pathology. Pt declines pelvic exam today and desires to return in 4-6 weeks for cuff check. - 07/28/24: Symptoms improved on estrogen patch but still bothersome, will increase dose. Cuff check unremarkable. Questions and concerns addressed. 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 Recommend treatment with hysterectomy. Recommend robotic approach. Discussed leaving ovaries in situ vs oophorectomy with subsequent iatrogenic menopause. Patient agreeable to removal of ovaries. Plan - CBC today - consents signed for exam under anesthesia, robotic assisted total laparoscopic hysterectomy, bilateral salpingoophorectomy, possible cystoscopy, any other indicated procedures. Discussed risks of surgery including bleeding, infection, injury to surrounding organs, blood clot, need for second procedure if malignancy is found on final pathology. - RTC postop Pelvic floor dysfunction 06/14/2024 Overview (06/14/2024): - history of dyspareunia - PF tenderness diffusely on exam - discussed that hysterectomy will not improve pelvic floor pain - discussed patient would benefit from pelvic floor physical therapy after healed from surgery, patient agreeable EIN (endometrial intraepithelial neoplasia) 04/29 Overview (05/16/2024): Pt reports heavy then irregular menses. Per her report in March TVUS showed 4cm stripe (she believes but is unsure). She then had a [facility] ppy 04/14/24- CAH on pathology. Patient declines exam today Briefly discussed diagnosis of EIN, pathology and clinical course of endometrial cancer, surgical treatment of early stage endometrial cancer/EIN, and pre-op optimization. Slides requested for pathology Referral to [facility] placed, pt would likely benefit from robotic approach Preop labs ordered (CBC, CMP, A1C, T&S) Current Treatment and Therapy Plans No current plan information found. Past Treatment and Therapy Plans No past plan information found. Lifetime Dose Tracking * Chemical Lifetime Dose Automatic Entry Manual Entr y DLP 937 mGycm 937 mGycm 0 mGycm
--- OUTSIDE RECORDS SUMMARY | 2025-06-11 01:17 | XMS_ITS | Encounter Summary ---
Author Organization [facility] Address [facility] [place] [address] Care Team Providers Care Glass Melt Operator Name Role Phone Parish Aguilar Primary Care Provider [phone] Encounter Details Date Type Department Care Team (Late st Contact Info) Description 04/11/2021 [employer] Message [facility] Patient Accounts [address] [place] [address] [employer], [facility] Provider [facility] Patient Financial Services Social History Tobacco Use Types Packs/Day Years Used Date Smoking Tobacco: Every Day Smokeless Tobacco: Never Alcohol Use Standard Drinks/Week Comments No 0 (1 standard drink = 0.6 oz pur e alcohol) AUDIT-C Answer Date Recorded Frequency of Alcohol Consumption Never 07/18/2019 Average Number of Drinks Not on file 019 Frequency of Binge Drinking Not on file 06/30 Comments No Sex and Gender Information Value Date Recorded Sex Assigned at Female 01/20/2025 4:51 PM TAX ASSISTANT Legal Sex Female 10:03 PM CDT Gender Identity Not on file Sexual Orientation Not on file documented as of this encounter Functional Status * RETIRED Are you deaf or do you have serious difficulty hearing Answer Date of Assessment Author Status No 03/04/2021 10:38 PM CDT Acti ve * RETIRED Are you blind or do you have serious difficulty seeing, even when wearing glasses? Answer Date of Assessment Author Status No 03/04/2021 10:38 PM CDT Acti ve * Do you have serious difficulty walking or climbing stairs? Answer Date of Assessment Author Status No 03/04/2021 10:38 PM Trudy Ballard RN Active * Do you have difficulty dressing or bathing? Answer Date of Assessment Author Status No 03/04/2021 10:38 PM Trudy Ballard RN Active * Because of a physical, mental, or emotional condition, do you have difficulty doing errands alone such as visiting a doctor's office or shopping? Answer Date of Assessment Author Status No 03/04/2021 10:38 PM Trudy Ballard RN Active documented as of this encounter Mental Status * Because of a physical, mental, or emotional condition, do you have serious difficulty concentrating, remembering, or making decisions? Answer Entry Date Author Status No 03/04/2021 10:38 PM Trudy Ballard RN Active documented in this encounter Plan of Treatment Not on file documented as of this encounter Goals Goal Patient Goal Type Associated Problems Recent Progress Patient-Stated? Author Establish Regular Follow-Ups with PCP General No Avni Solis RN documented as of this encounter Visit Diagnoses Not on filedocumented in this encounter Care Teams Glass Melt Operator Relationship Specialty Start Date End Date Parish Aguilar DO [address] [place] [address] PCP - General INTERNAL MEDICINE 09/04/20 documented as of this encounter
--- OUTSIDE RECORDS SUMMARY | 2025-06-11 01:17 | XMS_ITS | Clinical Summary ---
Author Organization [facility] Address [address] [place] [address] Care Team Providers Care Order Analyst Name Role Phone Erasmo Castillo MD Primary Care Provider [phone] Allergies Active Allergy Reactions Criticality Noted Date Comments Famotidine Rash Medium 03/04/2021 Medications ibuprofen 200 mg tab/capIndicati ons:Pain Take 4 tablet/capsu le (800 mg total) by mouth every 6 (six) hours as needed for pain Active ALPRAZolam (XANAX) 0.5 mg tablet Take 1 tablet (0.5 mg total) by mouth daily as needed for anxiety Active oxyCODONE (ROXICODONE) 5 mg immediate release tabletIndicatio ns:Pain Take 1 tablet (5 mg total) by mouth every 4 (four) hours as needed for pain 20 tablet 07/04/2024 Active acetaminophen (TYLENOL) 500 mg tablet Take 1 tablet (500 mg total) by mouth every 6 (six) hours as needed for pain 30 tablet 07/04/2024 Active polyethylene glycol (MIRALAX) 17 gram/dose bulk powder Take 17 g by mouth daily 500 g 1 07/04/2024 Active estradioL (VIVELLE-DOT) 0.075 mg/24 hrIndications:S urgically-induc ed menopause Place 1 patch on the skin 2 (two) times a week 8 patch 11 09/28/2024 5 Active Active Problems Problem Noted Date Diagnosed Date [...] 2x/week - Cleared for 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 She then had a [facility] ppy 04/14/24- CAH on pathology. Patient declines exam today Briefly discussed diagnosis of EIN, pathology and clinical course of endometrial cancer, surgical treatment of early stage endometrial cancer/EIN, and pre-op optimization. Slides requested for pathology Referral to [facility] placed, pt would likely benefit from robotic approach Preop labs ordered (CBC, CMP, A1C, T&S) Surgical History Surgery Date Site/Laterality Comments LAPAROSCOPIC CHOLECYSTECTOMY 11/29/2009 - 11/28/2010 TUBAL LIGATION 11/29/2008 - 11/28/2009 Bilateral DILATION AND CURETTAGE OF UTERUS 11/29/2007 - 11/28/2008 DILATION AND CURETTAGE OF UTERUS 11/29/2023 - 11/28/2024 Medical History Medical History Date Comments Gout Motion sickness car usually take s draminine Family History Medical History Relation Name Comments Ovarian cancer Mother Anesthesia problems Neg Hx Relation Name Status Comments Mother Social History Tobacco Use Types Packs/Day Years Used Date Smoking Tobacco: Former Cigarettes 1 20 2 002 - 2021 Smokeless Tobacco: Never Tobacco Cessation:Counseling Given: Not Answered AUDIT-C Answer Date Recorded Q1: How often do you have a drink containing alc ohol? Monthly or less 06/22/2024 Q2: How many drinks containi ng alcohol do you have on a typical day when you are drinking? 1 or 2 06/22/2024 Q3: How often do you have si x or more drinks on one occasion? Never 06/22/2024 Hunger Vital Sign Answer Date Recorded Within the past 12 months, y ou worried that your food would run out before you got the money to buy more. Patient declined Within the past 12 months, t he food you bought just didn't last and you didn't have money to get more. Patient declined Personal Safety Answer Date Recorded Have you ever been in or are you currently in a harmful physical or emotional relationship or is someone making you feel afraid or unsafe? Denies 07/04/2024 Comments No Sex and Gender Information Value Date Recorded Sex Assigned at Not on file Legal Sex Female 6:49 PM CDT Gender Identity Not on file Sexual Orientation Not on file Obstetrics History Para Term AB IAB SAB Ectopic Multiple Livin g Live Births 5 4 4 1 4 Date Outcome GA Total Labor Labor/2nd/3rd Weight Sex Type Anes PTL Denisa A1 A5 Name Clin Term Vag-Spon t Term Vaginal Term Vaginal Term Vaginal AB Last Filed Vital Signs Vital Sign Reading Time Taken Comments Blood Pressure 124/76 09/27/2024 1:29 PM CDT Pulse 88 09/27/2024 1:29 PM CDT Temperature 36.7 C (98.1 F) 09/27/2024 1:29 PM CDT Respiratory Rate 12 07/04/2024 1:50 PM CDT Oxygen Saturation 96% 09/27/2024 1:29 PM CDT Inhaled Oxygen Concentration - - Weight 157 kg (346 lb 1.6 oz) 09/27/2024 1:29 PM CDT Height 185.4 cm (6' 1) 07/19/2024 3:38 PM CDT Body Mass Index 45.66 07/19/2024 3:38 PM CDT Plan of Treatment Health Maintenance Due Date Last Done Comments Breast Cancer Screening-Mammogram 1979 Cervical Cancer Screening 1979 Colon Cancer Screening-Colonoscopy 1979 Depression Screening 1979 Hepatitis C Screening 1979 Hepatitis B Screening 1997 Regular Well Visit/Exam 18-64 1997 DTaP/Tdap/Td Vaccine (1 - Tdap) 05/09/2014 05/08/2014 Influenza Vaccine (Season Ended) 2025 08/28/2015, 09/12/2014 HPV Vaccines Aged Out No longer eligi ble based on patient's age to complete this topic Pneumococcal vaccine <65 Aged Out No longer eligible based on patient's age to complete this topic Insurance [facility] Care Teams Order Analyst Relationship Specialty Start Date End Date Erasmo Castillo MD [address] [facility] [address] [place] [address] PCP - General 07/20/19
--- OUTSIDE RECORDS SUMMARY | 2025-06-11 01:17 | XMS_ITS | Referral Summary ---
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 She then [facility] 04/14/24- CAH on pathology. Patient declines exam today Briefly discussed diagnosis of EIN, pathology and clinical course of endometrial cancer, surgical treatment of early stage endometrial cancer/EIN, and pre-op optimization. Slides requested for pathology Referral to [facility] placed, pt would likely benefit from robotic approach Preop labs ordered (CBC, CMP, A1C, T&S) Social History Tobacco Use Types Packs/Day Years Used Date Smoking Tobacco: Former Cigarettes 1 20 2 - 2021 Smokeless Tobacco: Never Tobacco Cessation:Counseling [...] on file Sexual Orientation Not on file Last Filed Vital Signs Vital Sign Reading [...] 07/19/2024 3:38 PM CDT Plan of Treatment Not on file Insurance [facility] Care Teams Security Shift Manager Relationship Specialty Start Date End Date Erasmo Castillo MD [address] [facility] [address] [facility] [address] [place] [address] PCP - General 07/20/19
--- OUTSIDE RECORDS SUMMARY | 2025-06-11 01:17 | XMS_ITS | Clinical Summary ---
Author Organization [facility] Care Team Providers Care Signal Technician Name Role Phone Unavailable Primary Care Provider Unavailabl e Social History Tobacco Use Types Packs/Day Years Used Date Smoking Tobacco: Never Assessed Comments Unknown Sex and Gender Information Value Date Recorded Sex Assigned at Not on file Legal Sex Female 10:09 AM CDT Gender Identity Not on file Sexual Orientation Not on file Plan of Treatment Health Maintenance Due Date Last Done Comments Hepatitis C Virus (HCV) Screening 1979 TdaP Immunization 1979 Hepatitis B Immunization (1 of 3 - 19+ 3-dose series) 1998 Pap Smear 2000 Cervical Cancer Screening (CCS) 2009 HPV/Cotest 2009 Discussion re Starting/Frequency of Mammograms 2019 Colonoscopy 2024 Colorectal Cancer Screening 2024 Influenza Immunization (#1) 07/30/202408/01, 09/12/2014 SARS-COV-2 Immunization ( season) 2024 Respiratory Syncytial Virus (RSV) Immunization (Adult) (1 - 1-dose 75+ series) 2054 DTaP/Tdap/Td Immunization Discontinued 05/08/2014 Meningococcal Immunization (ACWY) Aged Out No longer eligible based on patient's age to complete this topic Pneumococcal Immunization Combined Aged Out No longer eligible based on patient's age to complete this topic Rotavirus Immunization Aged Out No lo nger eligible based on patient's age to complete this topic
--- OUTSIDE RECORDS SUMMARY | 2025-06-11 01:17 | XMS_ITS | Clinical Summary ---
Author Organization [facility] Address [facility] [place] [address] Care Team Providers Care Patrol Community Service Officer Name Role Phone Parish Aguilar DO Primary Care Provider [phone] Allergies Active Allergy Reactions Criticality Noted Date Comments Famotidine Rash Low 03/04/2021 Medications diclofenac EC 75 MG tablet Take 1 tablet (75 mg total) by mouth 2 (two) times daily. 60 tablet 1 Active cyclobenzaprine 10 MG tablet Take 1 tablet (10 mg total) by mouth 3 (three) times daily as needed for Muscle Spasms. 16 tablet 1 Active ondansetron (ZOFRAN-ODT) 4 MG disintegrating tablet Take 1 tablet (4 mg total) by mouth every 8 (eight) hours as needed. 15 tablet 5 Active Active Problems Problem Noted Date Diagnosed Date Anemia 03/04/2021 Encounters Date Type Department Care Team Description 04/09/2025 12:59 PM CDT - 04/09/2025 4:15 PM CDT Emergency [facility] [place] [address] Foster Lubin PA-C Numbness Discharge Disposition: Home or Self Care (Routine Discharge) 04/09/2025 Travel from Last 3 Months Family History Medical History Relation Comments No Known Problems Father No Known Problems Mother Relation Status Comments Father Alive Mother Alive Social History Tobacco Use Types Packs/Day Years Used Date Smoking Tobacco: Former Cigarettes Smokeless Tobacco: Never Tobacco Cessation:Counseling Given: Not Answered Alcohol Use Standard Drinks/Week Comments No 0 (1 standard drink = 0.6 oz pur e alcohol) AUDIT-C Answer Date Recorded Frequency of Alcohol Consumption Never 07/18/2019 Average Number of Drinks Not on file 019 Frequency of Binge Drinking Not on file 06/30 Comments No Sex and Gender Information Value Date Recorded Sex Assigned at Female 01/20/2025 4:51 PM [employer] Legal Sex Female 10:03 PM CDT Gender Identity Not on file Sexual Orientation Not on file Last Filed Vital Signs Vital Sign Reading Time Taken Comments Blood Pressure 121/75 04/09/2025 3:28 PM CDT Pulse 68 04/09/2025 3:28 PM CDT Temperature 36.7 C (98 F) 04/09/2025 12:53 PM CDT Respiratory Rate 18 04/09/2025 3:28 PM CDT Oxygen Saturation 100% 04/09/2025 3:28 PM CDT Inhaled Oxygen Concentration - - Weight 152 kg (335 lb) 04/09/2025 12:53 PM CDT Height 182.9 cm (6') 04/09/2025 12:53 PM CDT Body Mass Index 45.43 04/09/2025 12:53 PM CDT Plan of Treatment Health Maintenance Due Date Last Done Comments Colorectal Cancer Screening Colonoscopy (10 Years) 1979 Annual Physical 1982 Hepatitis C 1997 DTaP, Tdap and Td Vaccines ( 1 - Tdap) 1998 Hepatitis B Vaccines (1 of 3 - 19+ 3-dose series) 1998 Mammogram Screening 2019 COVID-19 Vaccine (2023-2 5 season) 2024 Meningococcal B Vaccine Aged Out No l onger eligible based on patient's age to complete this topic Meningococcal Vaccine Aged Out No melquiades katie eligible based on patient's age to complete this topic Pneumococcal Vaccine: Pediat rics (0 to 5 Years) and At-Risk Patients (6 to 49 Years) Aged Out No longer eligible b ased on patient's age to complete this topic RSV Immunizations Under 20 Months Aged Out No longer eligible based on patient's age to complete this topic Goals Goal Patient Goal Type Associated Problems Recent Progress Patient-Stated? Author Establish Regular Follow-Ups with PCP General Avni Chavez RN Procedures Procedure Name Priority Date/Time Associated Diagnosis Comments CT LUMB SPINE WO CON STAT 04/09/2025 1:41 PM CDT from Last 3 Months Results * CT LUMB SPINE WO CON (04/09/2025 1:41 PM CDT) Anatomical Region Laterality Modality Spine Computed Tomogra phy 04/09/2025 1:58 PM CDT Impressions 04/09/2025 2:03 PM CDT IMPRESSION: 1. No acute fracture of the lumbar spine. 2. Mild to moderate lumbar spondylosis, as described above. 3. Hepatic steatosis. Ordered By: JOAQUINA MARLOW Interpreted By: Ramos Ramey MD, 04/09/2025 1:58 PM Narrative 04/09/2025 2:03 PM CDT [address] [address] Examination: CT LUMB SPINE WO CON, 04/09/2025 1:28 PM. Technique: Computed tomographic images of the lumbar spine were obtained without intravenous contrast. Additional coronal and sagittal reformatted images were generated at a separate workstation. A dose lowering technique was used for this procedure, which may include, but is not limited to, dose reduction technique, automated exposure control, the use of iterative reconstruction, and ALARA (As Low As Reasonably Achievable) / Image Gently techniques. Clinical history: lower back pain, hx of bulging discs. Numbness to left leg. Comparison: CT lumbar spine 01/24/2025 , CT abdomen and pelvis 09/04/2020 Findings: There are 5 nonrib-bearing lumbar-type vertebral bodies. The lumbar vertebral bodies and facets are well aligned. The lumbar vertebral body heights are preserved. Intervertebral disc height loss at L5-S1 with endplate degenerative change at this level. No acute fracture nor destructive process of the visualized osseous structures. Focal sclerosis within the left paramedian aspect of the L1 vertebral body. Hepatic steatosis. Cholecystectomy. Nonspecific focal sclerosis involving the right iliac bone, similar to the prior CT abdomen and pelvis examination from 09/04/2020. L1-2: No significant spinal canal or neural foraminal stenosis. L2-3: No spinal canal stenosis. Moderate facet hypertrophy. Mild bilateral neural foraminal stenosis. L3-4: No significant spinal canal stenosis. Moderate facet hypertrophy. Moderate right neural foraminal stenosis. Mild left neural foraminal stenosis. L4-5: Disc bulge impressing the ventral thecal sac. Moderate spinal canal stenosis. Moderate facet hypertrophy. Mild bilateral neural foraminal stenosis. L5-S1: Disc bulge with left paracentral disc protrusion impressing the ventral thecal sac. Moderate to severe left lateral recess narrowing. Moderate facet hypertrophy. Mild to moderate left neural foraminal stenosis. Mild right neural foraminal stenosis. Procedure Note Ramos Ramey MD - 04/09/[address] [address] Examination: CT LUMB SPINE WO CON, 04/09/2025 1:28 PM. Technique: Computed tomographic images of the lumbar spine were obtainedwithout intravenous contrast. Additional coronal and sagittal reformattedimages were generated at a separate workstation. A dose lowering techniquewas used for this procedure, which may include, but is not limited to,dose reduction technique, automated exposure control, the use of iterativereconstruction, and ALARA (As Low As Reasonably Achievable) / Image Gentlytechniques. Clinical history: lower back pain, hx of bulging discs. Numbness to leftleg. Comparison: CT lumbar spine 01/24/2025 , CT abdomen and pelvis 09/04/2020 Findings: There are 5 nonrib-bearing lumbar-type vertebral bodies. The lumbarvertebral bodies and facets are well aligned. The lumbar vertebral bodyheights are preserved. Intervertebral disc height loss at L5-S1 withendplate degenerative change at this level. No acute fracture nordestructive process of the visualized osseous structures. Focal sclerosiswithin the left paramedian aspect of the L1 vertebral body. Hepaticsteatosis. Cholecystectomy. Nonspecific focal sclerosis involving theright iliac bone, similar to the prior CT abdomen and pelvis examinationfrom 09/04/2020. L1-2: No significant spinal canal or neural foraminal stenosis. L2-3: No spinal canal stenosis. Moderate facet hypertrophy. Mild bilateralneural foraminal stenosis. L3-4: No significant spinal canal stenosis. Moderate facet hypertrophy.Moderate right neural foraminal stenosis. Mild left neural foraminalstenosis. L4-5: Disc bulge impressing the ventral thecal sac. Moderate spinal canalstenosis. Moderate facet hypertrophy. Mild bilateral neural foraminalstenosis. L5-S1: Disc bulge with left paracentral disc protrusion impressing theventral thecal sac. Moderate to severe left lateral recess narrowing.Moderate facet hypertrophy. Mild to moderate left neural foraminalstenosis. Mild right neural foraminal stenosis. IMPRESSION: 1. No acute fracture of the lumbar spine. 2. Mild to moderate lumbar spondylosis, as described above. 3. Hepatic steatosis. Ordered By: JOAQUINA MARLOW Interpreted By: Ramos Ramey MD, 04/09/2025 1:58 PM Jo[address]ina Marlow [place] CT Final Result from Last 3 Months Insurance [place] Advance Directives * Full Code (Latest Code Status on File) Date Activated Date Inactivated Comments 03/04/2021 9:14 PM 03/06/2021 5:06 PM Care Teams Patrol Community Service Officer Relationship Specialty Start Date End Date Parish Aguilar DO [address] [address] PCP - General INTERNAL MEDICINE 09/04/20
--- OUTSIDE RECORDS SUMMARY | 2025-06-11 01:17 | XMS_ITS | Clinical Summary ---
Author Organization [facility] Address [address] [place] [address] Care Team Providers Care Superintendent Drivers Name Role Phone Erasmo Castillo MD Primary Care Provider [phone] Source Comments [facility],non-owned Affiliates and Associated Physician Practices is amultiple site organization consisting of ambulatory clinics and hospital sitesin [place], [place], [place] and [place]. This disclosure is being madepursuant to the Care Everywhere program and may not contain all information available regarding this patient. Last updated 18.[facility] Allergies No known active allergies Medications * Be aware that medications may not be up to date on this document. Alwaysverify current medications with the patient. benzonatate (TESSALON) 200 MG capsuleIndicatio ns:Upper respiratory tract infection, unspecified type Take 1 capsule by mouth 3 times daily as needed for Cough 30 capsule 9 Active Additional Information Patient not taking.Reported on 12/18/2019 benzonatate (TESSALON) 200 MG capsule Take 1 capsule by mouth 3 times daily as needed for Cough 30 capsule 0 Active albuterol HFA (PROVENTIL;JUS ANJU;PROAIR) 108 (90 Base) MCG/ACT inhalerIndicatio ns:Wheezing Inhale 2 puffs by mouth every 6 hours as needed 1 Inhaler 0 Active Social History Tobacco Use Types Packs/Day Years Used Date Smoking Tobacco: Every Day Cigarettes Smokeless Tobacco: Never Comments No Sex and Gender Information Value Date Recorded Sex Assigned at Not on file Legal Sex Female 8:57 AM CDT Gender Identity Not on file Sexual Orientation Not on file Last Filed Vital Signs Vital Sign Reading Time Taken Comments Blood Pressure 136/84 12/18/2019 3:34 PM OFFICE MACHINE 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 Pulse 118 12/18/2019 3:34 PM OFFICE MACHINE 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 OPERATOR Temperature 36.7 C (98 F) 12/18/2019 3:34 PM OFFICE MACHINE 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 OPERATOR Respiratory Rate 20 12/18/2019 3:34 PM OFFICE MACHINE 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 OPERATOR Oxygen Saturation 98% 12/18/2019 3:34 PM OFFICE MACHINE 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 OPERATOR Inhaled Oxygen Concentration - - Weight 145.2 kg (320 lb) 12/18/2019 3:34 PM OFFICE MACHINE 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 OPERATOR Height 182.9 cm (6') 12/18/2019 3:34 PM OFFICE MACHINE 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 OPERATOR Body Mass Index 43.4 12/18/2019 3:34 PM OFFICE MACHINE 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 OPERATOR Plan of Treatment Health Maintenance Due Date Last Done Comments COLOGUARD (AGES 45-75) - COL ON CA SCREENING 1979 COLON MONITORING 1979 COLONOSCOPY - COLON CA SCREENING 1979 CT COLONOGRAPHY - COLON CA SCREENING 1979 Colorectal Cancer Screening 1979 FIT - COLON CA SCREENING 1979 FLEX SIG - COLON CA SCREENING 1979 LIPID TESTING 1979 MAMMOGRAM 1979 HIV SCREENING 1994 HEPATITIS C SCREENING 04/30/1997 DTAP/TDAP/TD VACCINES (1 - Tdap) 1998 HEPATITIS B VACCINE (1 of 3 - 19+ 3-dose series) 1998 PNEUMOCOCCAL VACCINE (1 of 2 - PCV) 1998 PAP SMEAR 2000 SCREENING FOR DIABETES 12/18/2019 COVID-19 VACCINE (1 - 2023-2 5 season) 2024 DEPRESSION SCREENING 11/29/2024 INFLUENZA VACCINE (#1) 2025 ZOSTER VACCINE (1 of 2) 2029 HIB VACCINE Aged Out No longer eligi ble based on patient's age to complete this topic HPV VACCINE Aged Out No longer eligi ble based on patient's age to complete this topic MENINGOCOCCAL (Group B) VACC INE SHARED DECISION-MAKING Aged Out No longer eligibl e based on patient's age to complete this topic MENINGOCOCCAL GROUPS A/C/Y/W VACCINE Aged Out No longer eligible b ased on patient's age to complete this topic Insurance [facility] * Guarantor: LILIAN VENTURA Account Type Relation to Patient Date of Phone Billing Address Personal/Family [address] [place] [address] [facility] SELF PAY NO INSURANCE Member Subscriber Plan / Payer (Ef fective for All Dates) Name:[place] Lilian Felipeesa Member ID:Not on file Relation to Subscriber:Not on file Name:LILIAN VENTURA Subscriber ID:Not on file Address: [address] [place] [address] Payer ID:Not on file Group ID:Not on file Type:Self Pay Address: [place], [place] * Guarantor: LILIAN VENTURA Account Type Relation to Patient Date of Phone Billing Address Personal/Family [address] [place] [address] [facility] SELF PAY NO INSURANCE Member Subscriber Plan / Payer (Ef fective for All Dates) Name:Lilian Ventura Member ID:Not on file Relation to Subscriber:Not on file Name:ILLIAN VENTURA Subscriber ID:Not on file Address: [address] [place] [phone] Payer ID:Not on file Group ID:Not on file Type:Self Pay Address: [place], [place] * Guarantor: LILIAN VENTURA Account Type Relation to Patient Date of Phone Billing Address Personal/Family [address] [place] [phone] [facility] SELF PAY NO INSURANCE Member Subscriber Plan / Payer (Ef fective for All Dates) Name:Lilian Ventura Member ID:Not on file Relation to Subscriber:Not on file Name:LILIAN VENTURA Subscriber ID:Not on file Address: [address] [place] [phone] Payer ID:Not on file Group ID:Not on file Type:Self Pay Address: [place], [place] Care Teams Superintendent Drivers Relationship Specialty Start Date End Date Erasmo Castillo MD [address] [place] [phone] PCP - General Internal Medicine 03/09/19
--- OUTSIDE RECORDS SUMMARY | 2025-06-11 01:17 | XMS_ITS ---
Author Organization Unknown Plan of Treatment Description Planned Activity Planned Timing [facility] is a provider organization who partners directly with Health Plans and provides integrated primary care, behavioral health, and social media designer for an attributed population Letter encounter to patientTelephone encounter May 24, 2025Jul 2024 Patient Care team information Name Category Status Period Participants - - Proposed period not known -
--- OUTSIDE RECORDS SUMMARY | 2025-06-11 01:17 | XMS_ITS | Data Portability ---
Author Organization [facility] Address [address] [place] [address] Care Team Providers Care Tobacco Stripper Hand Name Role Phone DAT STEEN Primary Care Provider Assessment Encounter Date Assessment Date Assessment LastModified by Organization Details LastModified Time 03/22/2024 03/22/2024 Annual gynecological exam performed. Patient will come back in a year unless there are new symptoms. Not available 03/22/2024 12:08:35 Plan of Treatment Reminders Order Date Submit Date Provider Last Modified By Organization Details Last Modified Time Details Appointments None recorded. Lab TSH, serum or plasma 2023 [facility] (Lab), [address], [place], [address], 4 03:41:30 prolactin, serum 2023 024 [facility] (Lab), [address] [place], [address], 4 03:41:29 testosteron e, total, serum 2023 024 [facility] (Lab), [address] [place], [address], 4 03:41:28 hormone panel, serum or plasma 2023 024 [facility] (Lab), [address], [place], [address], 4 03:41:30 HbA1c (hemoglobin A1c), blood 2023 024 [facility] (Lab), [address], [place], [address], 4 03:41:31 Referral None recorded. Procedures None recorded. Surgeries hysteroscop y, surgical, with biopsy of endometrium and/or polypectomy (SURG) 2023 024 [facility], [address], [place], [address], 4 10:49:51 Imaging US, transvagina l [address], [address], [place], [address], 4 20:58:23 US, pelvis [address], [address], [place], [address], 4 22:31:29 US, transvagina l [address], [address], [place], [address], 4 22:31:29 US, pelvis, complete 2023 024 [address], [address], [place], [address], 4 11:50:31 Medication Orders oxycodone-a cetaminophe n 5 mg-325 mg tablet 2023 024 [facility], [address], [place], [address], 4 17:59:06 Patient TargetsNo targets recorded. Patient InstructionsNo instructions recorded. Reason for Referral None Reported. 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 Shift in ana paula sugge stive of bacte rial vagin osis. Elect jerome escamilla marie d by Caridad Smith ret, CT on 024 at 2:00 PM ----- ----- ----- ----- ----- ----- ----- ----- ----- ----- ----- ----- ----- ----- ----- ----- ----- ---- HPV RESUL TS: HPV mRNA E6/E7 : No HPV mRNA Detec hola NOTE: This high risk HPV mRNA assay detec ts fourt een high- risk HPV types (16, 18, 31, 33, 35, 39, 45, 51, 52, 56, 58, 59, 66, 68) witho ut diffe renti ation . COMME NT: This speci men was revie wed by a Cytot echno logis t and/o r Patho logis t (as indic ated in this repor t) after evalu ation using the Thinp rep Imagi ng Syste m. CLINI PURNIMA INFOR MATIO N: Menst rual Statu s: LMP (if appli cable ): Clini purnima Histo ry/Pr eviou s Pap: Type of Neopl bj (if appli cable ): Signi fican t Clini purnima Findi ngs: Other Histo ry: Hormo cedric (if appli cable ): PAP EDUCA ANDRAE L NOTE: The Pap Test is a scree graciela test with an inher ent false negat sergio rate. Liqui d-bas ed sampl ing may decre ase, but will not elimi santiago, false negat sergio resul ts. A negat sergio resul t does not precl ude the prese nce and/o r devel opmen t of disea se, since the prese nce of abnor mal cells in the sampl e depen ds on the locat ion of the lesio n and sampl ing techn ique. Justin nued regul ar scree graciela is the best metho d of cance r preve ntion . If repor hola cytol ogic findi ng do not corre late with physi purnima and/o r histo rical findi ngs, furth er inves tigat ion is recom radha d, as clini jose warra nted. Not Available [facility] (Lab) [address], [place], [address], 03/29/2024 15:02:39 03/22/20 24 03/22/2024 TRICH OMONA S VAGIN SAGAR (RRNA ) trichomonas vaginalis ribosomal RNA (rrna) Negati ve negati ve Not Available [facility] (Lab) [address] [place], [address], 03/29/2024 15:02:39 03/22/20 24 03/22/2024 CT/GC (SIDNEY) , THINP REP VIAL chlamydia trachomatis, PCR Negati ve negati ve Not Available [facility] (Lab) [address] [place], [address], 03/29/2024 15:02:40 03/22/20 24 03/22/2024 CT/GC (SIDNEY) , THINP REP VIAL neisseria gonorrhoeae, PCR Negati ve negati ve Not Available [facility] (Lab) [address] [place], [address], 03/29/2024 15:02:40 03/28/20 24 03/28/2024 TESTO STERO NE, TOTAL testosterone , total 57 NG/dL 0-100 Not Available [facility] (Lab) [address] [place], [address], 03/29/2024 03:41:28 03/28/20 24 03/28/2024 PROLA CTIN prolactin, total 18.00 NG/mL 4.79-2 3.30 This assay was perfo rmed using [employer] n reage nts and test kits. Value s obtai teddy with other assay metho ds or kits canno t be used [facility] . Not Available [facility] (Lab) [address] [place], [address], 03/29/2024 03:41:29 03/28/20 24 03/28/2024 FSH, LH, ESTRA DIOL estradiol 126.0 pg/mL This assay was perfo rmed using [employer] reage nts and test kits. Value s obtai teddy with other assay metho ds or kits canno t be used inter [facility] . Femal e Estra diol Range s: Folli cular phasE 12.4- 233 pg/mL Ovula tion phasE 41.0- 398 pg/mL Lutea l phasE 22.3- 341 pg/mL Postm enopa usal <5-13 8 pg/mL Healt hy Pregn ant Women 1st Trime ster 154-3 243 pg/mL 2nd Trime ster 1561- 59223 pg/mL 3rd Trime ster 8525- >3000 0 pg/mL Not Available [facility] (Lab) [address], [place], [address], 03/29/2024 03:41:30 03/28/20 24 03/28/2024 FSH, LH, ESTRA DIOL FSH 1.2 mIU/m L This assay was perfo rmed using [employer] reage nts and test kits. Value s obtai teddy with other assay metho ds or kits canno t be used inter [facility] . Femal es Folli cular : 3.5-1 2.5 mIU/m L Ovula tion: 4.7-2 1.5 mIU/m L Lutea l: 1.7-7 .7 mIU/m L Postm enopa use: 25.8- 134.8 mIU/m L Not Available [facility] (Lab) [address], [place], [address], 03/29/2024 03:41:30 03/28/20 24 03/28/2024 FSH, LH, ESTRA DIOL LH 5.7 mIU/m L This assay was perfo rmed using [employer] n reage nts and test kits. Value s obtai teddy with other assay metho ds or kits canno t be used inter [facility] . Femal es Mid-F ollic ular: 2.4-1 2.6 mIU/m L Mid-C ycle: 14.0- 95.6 mIU/m L Mid-L uteal : 1.0-1 1.4 mIU/m L Postm enopa use: 7.7-5 8.5 mIU/m L Not Available [facility] (Lab) [address], [place], [address], 03/29/2024 03:41:30 03/28/20 24 03/28/2024 TSH, REFLE X FREE T4 TSH 2.35 uIU/m L 0.30-5 .33 Not Available [facility] (Lab) [address], [place], [address], 03/29/2024 03:41:30 03/28/20 24 03/28/2024 HEMOG LOBIN A1C hemoglobin A1C 5.6 % 0-5.6 The Ameri can Diabe judie Assoc iatio n recom mends that a prima ry goal of thera py shoul d be a HBA1C of < 7% and that physi cians shoul d reeva luate the treat ment regim en in patie nts with HBA1C value s consi stent ly > 8%. <5.7% Kandice l 5.7 - 6.4% Incre ased risk for diabe judie >=6.5 % Diagn ostic of diabe judie <7.0% Goal of thera py >8.0% Actio n sugge sted Not Available [facility] (Lab) [address], [place], [address], 03/29/2024 03:41:31 03/28/20 24 03/28/2024 US, pelvi s No observ ation record ed. [email or web address] [facility] [address], [place], [address], 03/28/2024 13:08:45 03/28/20 24 03/28/2024 US, trans vagin al No observ ation record ed. [email or web address] [facility] [address], [place], [address], 03/28/2024 13:08:33 03/28/20 24 03/28/2024 US, pelvi s No observ ation record ed. [email or web address] [facility] [address], [place], [address], 04/04/2024 12:53:56 04/18/20 24 04/18/2024 US, trans vagin al No observ ation record ed. [email or web address] [facility] [address], [place], [address], 04/18/2024 12:25:09 04/18/20 24 04/18/2024 US, trans vagin al No observ ation record ed. [email or web address] [facility] [address], [place], [address], 04/18/2024 21:54:37 Result Notes None recorded. Procedures Surgical History Date Name Laterality Status Provider Name and Address Organization Details Recorded Time 04/14/20 24 HYSTEROSCOPY, SURGICAL, WITH BIOPSY OF ENDOMETRIUM AND/OR POLYPECTOMY (SURG) completed Jsaen Liu [facility] 04/14/2024 11:14:31 03/22/20 24 Date of Last Pap Smear completed Cathy Renteria [facility] 04/17/2024 17:29:25 02/28/20 24 Date of Last Mammogram completed [facility] 03/22/2024 12:13:04 11/29/19 10 Cholecystectomy completed [facility] 03/22/2024 12:17:31 01/13/20 09 Tubal Ligation completed [facility] 03/22/2024 12:17:43 Imaging Results None recorded. Procedure Notes None recorded. Medical Equipment None Reported. Allergies No known drug allergies Medications Name Sig Start Date Stop Date Status Note LastModified by Organization Details LastModified Time cyclobenzap rine 10 mg tablet TAKE 1 TABLET BY MOUTH THREE TIMES DAILY NEEDED FOR MUSCLE SPASM FOR 10 DAYS 03/22 completed Not Available Not Available Not Available ibuprofen 800 mg tablet TAKE 1 TABLET BY MOUTH THREE TIMES DAILY WITH FOOD 03/22 completed Not Available Not Available Not Available hydrocodone 5 mg-acetamin ophen 325 mg tablet TAKE 1 TABLET BY MOUTH EVERY 6 HOURS NEEDED FOR ACUTE PAIN 03/22 completed Not Available Not Available Not Available metronidazo le 0.75 % (37.5 mg/5 gram) vaginal gel INSERT 1 APPLICATO RFUL VAGINALLY ONCE DAILY AT BEDTIME FOR 5 DAYS 04/17 completed Not Available Not Available Not Available penicillin V potassium 500 mg tablet TAKE 1 TABLET BY MOUTH 4 TIMES DAILY FOR 10 DAYS 03/22 completed Not Available Not Available Not Available amoxicillin 500 mg tablet TAKE 1 TABLET BY MOUTH THREE TIMES DAILY FOR 10 DAYS 03/22 completed Not Available Not Available Not Available oxycodone-a cetaminophe n 5 mg-325 mg tablet TAKE 1 TABLET BY MOUTH EVERY 6 HOURS active Not Available Not Available No t Available [facility] 25 mg tablet TAKE 1 TABLET BY MOUTH THREE TIMES DAILY NEEDED FOR DIZZINESS 03/22 completed Not Available Not Available Not Available cephalexin 500 mg capsule TAKE 1 CAPSULE BY MOUTH EVERY 12 HOURS FOR 5 DAYS active Not Available Not Available No t Available indomethaci n 50 mg capsule TAKE 1 CAPSULE BY MOUTH THREE TIMES DAILY WITH FOOD FOR 5 DAYS 03/22 completed Not Available Not Available Not Available methylpredn isolone 4 mg tablets in a dose pack TAKE BY MOUTH DIRECTED ON INSIDE OF PACKAGE 03/22 completed Not Available Not Available Not Available colchicine 0.6 mg tablet TAKE 1 TABLET BY MOUTH TWICE DAILY FOR GOUT 03/22 completed Not Available Not Available Not Available Vitals Date Recorded Body height Body mass index (BMI) Body weight Systolic And Diastolic Provider Name and Address Organization Details Last Updated DateTime 03/22/2024 180.34 cm 47.4 kg/m2 586617.41 g 126/80 mm[Hg] Kelin Broussard [facility] 03/22/2024 12:10:50 Date Recorded Body height Body mass index (BMI) Body weight Systolic And Diastolic Provider Name and Address Organization Details Last Updated DateTime 04/03/2024 180.34 cm 47.3 kg/m2 201416.81 g 130/74 mm[Hg] [facility] 04/03/2024 11:10:35 Date Recorded Body height Body mass index (BMI) Body weight Systolic And Diastolic Provider Name and Address Organization Details Last Updated DateTime 04/17/2024 180.34 cm 47 kg/m2 013991.63 g 135/87 mm[Hg] [facility] 04/17/2024 17:28:58 Social History Question Answer Notes LastModified by Organizat ion Details LastModified Time Tobacco Smoking Status Current Every Day Smoker immanuel Broussard [facility] 03/22/2024 12:15:17 Are You Blind Or Do You Have Difficulty Seeing? No Information n ot available 03/22/2024 What Is Your Level Of Caffeine Consumption? Moderate Information not available 03/22/2024 In The 14 Days Before Symptom Onset, Have You Had Close Contact With A Laboratory-confirm ed COVID-19 While That Case Was Ill? No Information n ot available 03/22/2024 In The 14 Days Before Symptom Onset, Have You Had Close Contact With A Person Who Is Under Investigation For COVID-19 While That Person Was Ill? No Information not available 03/22/2024 Have You Been To An Area Known To Be High Risk For COVID-19? No Information not available 03/22/2024 Are You Deaf Or Do You Have Serious Difficulty Hearing? No Information not available 03/22/2024 What Type Of Diet Are You Following? REGULAR Information n ot available 03/22/2024 What Is The Highest Grade Or Level Of School You Have Completed Or The Highest Degree You Have Received? [id number] Information not available 03/22/2024 Are There Any Guns Present In Your Home? No Information not available 03/22/2024 Do You Use Protection During Sex? No Information not available 03/22/2024 Do You Use Your Seat Belt Or Car Seat Routinely? Yes Information not available 03/22/2024 Are You Sexually Active? Yes Information not available 03/22/2024 Do You Have Smoke And Carbon Monoxide Detectors In Your Home? Yes Information not available 03/22/2024 Do You Use Sunscreen Routinely? No Information not available 03/22/2024 Do You Have Difficulty Walking Or Climbing Stairs? No Information not available 03/22/2024 Sex: Female Functional Status Question Answer Note LastModified by Organizat ion Details LastModified Time Do you use any illicit or recreational drugs? No Information not available 03/22/2024 What is your level of alcohol consumption? Occasional Information not available 03/22/2024 Are you currently employed? Yes Information not available 03/22/2024 Are you able to walk? YESWOREST Information not available 03/22/2024 Are you able to care for yourself? Yes Information n ot available 03/22/2024 Do you have difficulty dressing or bathing? No Information not available 03/22/2024 What is your exercise level? None Information not available 03/22/2024 Mental Status Question Answer Note LastModified by Organization D etails LastModified Time Do you feel stressed (tense, restless, nervous, or anxious, or unable to sleep at night)? [id number] Information not available 03/22/2024 Family History Relationship Description Onset Age of this Age Resolved Age Notes LastModified by Organization Details LastModified Time Mother Neoplasm of ovary Not available 2023 12:19:45 Medical History Condition Response Allergies (Food, seasonal, environmental ) N Other Y Breast Cancer N Drug/Latex Allergies/Reactions N Blood Transfusion N Lung Disease N Dermatologic Disorders N Defects or Inherited Disease N Breast Problem N Gestational Diabetes N Hematologic disorders N Anesthesia Complications N History of STI N Deep Vein Thrombosis N Polycystic ovary syndrome N Anxiety Disorder N Autoimmune disease N Arthritis N Polyps N Infertility N History of abnormal pap N Acid Reflux (GERD) N Cancer N Varicosities N Stroke N Neurologic/Epilepsy N Endometriosis N High Cholesterol N Fibromyalgia N Headaches N Kidney Disease N Heart Problems N Kidney or Bladder Problems N Thyroid Problems N GI Problems N Eating Disorder N Anemia Y Art (IVF or FET) N Psychiatric Illness N Ovarian Cancer N Diabetes N Pulmonary (TB, Asthma) N Hepatitis/Liver Disease N No Past Medical History N Eczema N Urinary Tract Infection N Abuse/Domestic Violence N Asthma N Trauma/Violence N Depression/ depression N Heart Disease N Pre-Eclampsia N Hypertension N Osteoporosis N Thrombophilias N Gynecological History Statement/Question Response Abnormal Pap N Date of Last Mammogram 02/28/2024 Date of LMP On BCP's at Conception? N Was last menstrual period normal N STIs/STDs N HPV Vaccine N Current Control Method Tubal Ligat ion If Post Menopausal, Age at Menopause 42 Are cycles usually normal N Sexually Active? Y Menses Monthly N Age of first menstrual cycle 7 Date of Last Pap Smear 03/22/2024 Sexual Problems? Y LMP Unknown Obstetrics History GPAL:G 5 P 4 0 1 4 Type Value Full Term 4 Spontaneous 1 Living 4 Total 5 Past Encounters Encounter ID Performer Location Encounter Start Date Encounter Closed Date Diagnosis/Indication Diagnosis SNOMED-CT Code Diagnosis ICD10 Code Diagnosis Note [id number] Margo Oden [facility] [address] [address] 03/22/2024 11:16:30 03/22/2024 13:34:16 Gynecologic examination 74224165 Z01.419 Suggested Calcium with Vitamin D 1200-1500m g daily. Patient advised to get an annual flu shot in the fall and she could obtain at [facility] or [facility] clinic. Also to obtain TDap vaccinatio n if you have not had one in the last 10 years. Recommend yearly mammograms . Encouraged monthly self breast exams. Encourage safe sexual practices, to use condoms and limit partners if not already in a monogamous relationsh ip. Engage in daily exercise of low impact aerobic exercise 45-60 minutes 4-5 times weekly. Avoid tobacco and illicit drugs as well as using moderation with alcohol intake less than 1-2 8 oz beverages daily. This lifestyle behavior pattern will lead to less health conditions and longer life span. If BMI greater than 25 weight watchers or dietary consult advised. All questions have been answered. Patient appears to understand informatio n, but if you have any questions please call or respond to this email.Pap/ hpv sentSTD Screen sentGeneti c Screen discussedC olon Screen PCPDexa Screen naRoutine Labs PCP Secondary amenorrhea 156 500667 N91.1 No menses for almost a year now.Not on any medication that might cause this issue.Used to have HEAVY cycles then one month stopped and hasn't had them for almost a year now.Today we agred to:[facility] reach out with results and decide next steps in POC.POI vs Perimenopa use vs autoimmune issue. Dyspareunia 36500906 N94 .10 Perimenopa usal vs POI/menopa usal changes vs Uterine abn'sWill further assess once secondary amenorrhea work up is completed. Body mass index 40+ - severely obese 131712483 Z68.42 Consider interventi ons/lifest yle changes/in crease activity/w ork up for DM2 [id number] Charles Jamil MD [facility] [address] [address] 03/28/2024 10:26:57 03/28/2024 11:18:57 Amenorrhea 88828681 N91.2 N93.0 [id number] Charles Jamil MD [facility] [address] [address] 04/03/2024 10:54:20 04/03/2024 11:42:20 Lesion of endometrium 8520893575 9101 N85.9 43-year-ol d female with amenorrhea for 6 months, history of abnormal uterine bleeding, very thickened endometriu m. We discussed the findings. She has a 4 cm endometriu m. Postcoital bleeding. There is vascularit y thickened endometriu m. There are cystic vacuolated areas. We discussed these findings. We discussed significan ce. We discussed the necessity of ruling out endometria l cancer. We agreed to hysterosco py with D and C and possible polypectom y. We spent over 20 minutes face-to-fa ce. More than 50% was counseling . We made a decision to perform surgery. I explained the procedure to the patient in great detail. She understand s and is ready to proceed. We will proceed with hysterosco py D&C. She understand s risks, benefits, and alternativ es. She is completed the informed consent process and is ready to proceed. [id number] Charles Jamil MD [facility] [address] [address] 04/17/2024 16:59:38 04/19/2024 08:27:59 Postoperative pain [id number] G89.18 this patient is a 43-year-ol d female who presents for postoperat sergio care. She had a hysterosco py D&C. Hysterosco py shows complex hyperplasi a with atypia we discussed these findings. We agreed to refer to [facility] physicians Dr. Victor she has an unusual amount of pain for hysterosco py D& C. She is treated with pain medication today. The uterus did have endometriu m that was thickened and well organized. [id number] Charles Jamil MD [facility] [address] [address] 04/18/2024 10:23:46 04/18/2024 11:28:49 Pain in pelvis [id number] R10.2 R93.89 Health Concerns Section Related Observation LastModified by Organization Detai ls LastModified Time None Recorded Concern Status LastModified by Organization Details LastModified Time None Recorded Advance Directives Directive None Recorded Payers Insurance Date Sequence Insurance Name Policy Number Policy Díaz Covered Member ID Díaz Member ID Guarantor Name 04/11/2024 1 [facility] - DOS ON OR AFTER 21 (MEDICAID REPLACEMENT - HMO) Lilian Haynes [id number] Lilian Haynes Notes Date Note Type Note Provider Name and Address Organization Details Recorded Time 03/22/2024 text/html Annual GYNReport ed bypatient.Menstrual cycle:Missed most recent period(amenorrheic almost the entire year) Urinary symptoms:No hematuria; No incontinence Vulva:No genital lesion Vagina:Normal vaginal discharge Breast:No breast pain; No breast lump; No nipple discharge Current Contraception:Satis fied with current contraception; Tubal ligation Sexual complaints:No sexual complaints; No pain during intercourse; Normal libido Menopausal Symptoms:No menopausal symptoms; Normal vaginal lubrication Psychological symptoms:No depression; No anxiety; No PMDD Preventive measures:Encourage self breast examination; Encourage regular exercise; Encourage no tobacco use; Encourage regular mammograms starting age 40; Mammogram performed within the past year Margo Oden, [facility]- [address], [place], [address], [facility] 03/22/2024 13:27:48 04/03/2024 text/html 43-year-old fema le with amenorrhea for 6 months, history of abnormal uterine bleeding, very thickened endometrium. We discussed the findings. She has a 4 cm endometrium. Postcoital bleeding. There is vascularity thickened endometrium. There are cystic vacuolated areas. We discussed these findings. We discussed significance. We discussed the necessity of ruling out endometrial cancer. We agreed to hysteroscopy with D and C and possible polypectomy. We spent over 20 minutes [id number]. More than 50% was counseling. We made a decision to perform surgery. I explained the procedure to the patient in great detail. She understands and is ready to proceed. Charles Jamil MD [address], [place], [address], [facility] 04/03/2024 11:41:08 04/17/2024 text/html this patient is a 43-year-old female who presents for postoperative care. She had a hysteroscopy D&C. Hysteroscopy shows complex hyperplasia with atypia we discussed these findings. We agreed to refer to [facility] physicians Dr. Victor she has an unusual amount of pain for hysteroscopy D& C. She is treated with pain medication today. The uterus did have endometrium that was thickened and well organized. Charles Jamil MD [address], [place], [address], [facility] 04/18/2024 17:22:02 OBGyn Episode Ob Episode Information Episode Created Date Number of Fetuses Patient Bloodtype Patient rh Status Prepregnancy Weight lbs Domestic Partner Domestic Partner Phone Father Name Auto Washer Status 03/22/20 24 1 CLOSED Fetus Data First Name Last Name Admitted to NICU Weight (g) Sex Living Outcome Pediatric Complications Fetus ID Race Codes Race Delivery Type 3430.06 [id number] F Full Term [id number] Vaginal Delivery Zack Calculation Initial Zack Date Initial Exam Date Initial Exam Provider Initial Ultrasound Date Last Menstrual Period Date Ultra Sound Weeks Gestation 0 Eighteen To Twenty Week Zack Update Ultra Sound Date Fundal Height At Umbil Quickening Date Ultra Sound Latest Weeks Gestation Final Zack Confirmed By Final Zack Confirmed Date Final Zack Date Ultra Sound Latest Days Gestation 0 0 Menstrual History Last Menstrual Date Menses Monthly On Bcp Conception Prior Menses Frequency Hcg Plus Date Menarche Onset Age Delivery Information Delivery Date Delivery Type Labor Anesthesia Weeks Gestation Incision Type Labor Labor Length Hrs Delivered By Post Complications Tubal Sterilization Discharge Date Comments 6 40 Discharge Information Feeding Method Contraceptive Method Maternal HG B and HCT Levels Ob Episode Information Episode Created Date Number of Fetuses Patient Bloodtype Patient rh Status Prepregnancy Weight lbs Domestic Partner Domestic Partner Phone Father Name Auto Washer Status 03/22/20 24 1 CLOSED Fetus Data First Name Last Name Admitted to NICU Weight (g) Sex Living Outcome Pediatric Complications Fetus ID Race Codes Race Delivery Type , [place] ous [id number] Zack Calculation Initial Zack Date Initial Exam Date Initial Exam Provider Initial Ultrasound Date Last Menstrual Period Date Ultra Sound Weeks Gestation 0 Eighteen To Twenty Week Zack Update Ultra Sound Date Fundal Height At Umbil Quickening Date Ultra Sound Latest Weeks Gestation Final Zack Confirmed By Final Zack Confirmed Date Final Zack Date Ultra Sound Latest Days Gestation 0 0 Menstrual History Last Menstrual Date Menses Monthly On Bcp Conception Prior Menses Frequency Hcg Plus Date Menarche Onset Age Delivery Information Delivery Date Delivery Type Labor Anesthesia Weeks Gestation Incision Type Labor Labor Length Hrs Delivered By Post Complications Tubal Sterilization Discharge Date Comments 4 Discharge Information Feeding Method Contraceptive Method Maternal HG B and HCT Levels Ob Episode Information Episode Created Date Number of Fetuses Patient Bloodtype Patient rh Status Prepregnancy Weight lbs Domestic Partner Domestic Partner Phone Father Name Auto Washer Status 03/22/20 24 1 CLOSED Fetus Data First Name Last Name Admitted to NICU Weight (g) Sex Living Outcome Pediatric Complications Fetus ID Race Codes Race Delivery Type 3486.76 [id number] M Full Term [id number] Vaginal Delivery Zack Calculation Initial Zack Date Initial Exam Date Initial Exam Provider Initial Ultrasound Date Last Menstrual Period Date Ultra Sound Weeks Gestation 0 Eighteen To Twenty Week Zack Update Ultra Sound Date Fundal Height At Umbil Quickening Date Ultra Sound Latest Weeks Gestation Final Zack Confirmed By Final Zack Confirmed Date Final Zack Date Ultra Sound Latest Days Gestation 0 0 Menstrual History Last Menstrual Date Menses Monthly On Bcp Conception Prior Menses Frequency Hcg Plus Date Menarche Onset Age Delivery Information Delivery Date Delivery Type Labor Anesthesia Weeks Gestation Incision Type Labor Labor Length Hrs Delivered By Post Complications Tubal Sterilization Discharge Date Comments 0 40 Discharge Information Feeding Method Contraceptive Method Maternal HG B and HCT Levels Ob Episode Information Episode Created Date Number of Fetuses Patient Bloodtype Patient rh Status Prepregnancy Weight lbs Domestic Partner Domestic Partner Phone Father Name Auto Washer Status 03/22/20 24 1 CLOSED Fetus Data First Name Last Name Admitted to NICU Weight (g) Sex Living Outcome Pediatric Complications Fetus ID Race Codes Race Delivery Type 3033.16 [id number] F Full Term [id number] Vaginal Delivery Zack Calculation Initial Zack Date Initial Exam Date Initial Exam Provider Initial Ultrasound Date Last Menstrual Period Date Ultra Sound Weeks Gestation 0 Eighteen To Twenty Week Zack Update Ultra Sound Date Fundal Height At Umbil Quickening Date Ultra Sound Latest Weeks Gestation Final Zack Confirmed By Final Zack Confirmed Date Final Zack Date Ultra Sound Latest Days Gestation 0 0 Menstrual History Last Menstrual Date Menses Monthly On Bcp Conception Prior Menses Frequency Hcg Plus Date Menarche Onset Age Delivery Information Delivery Date Delivery Type Labor Anesthesia Weeks Gestation Incision Type Labor Labor Length Hrs Delivered By Post Complications Tubal Sterilization Discharge Date Comments 2 40 Discharge Information Feeding Method Contraceptive Method Maternal HG B and HCT Levels Ob Episode Information Episode Created Date Number of Fetuses Patient Bloodtype Patient rh Status Prepregnancy Weight lbs Domestic Partner Domestic Partner Phone Father Name Auto Washer Status 03/22/20 24 1 CLOSED Fetus Data First Name Last Name Admitted to NICU Weight (g) Sex Living Outcome Pediatric Complications Fetus ID Race Codes Race Delivery Type 2579.57 [id number] F Full Term [id number] Vaginal Delivery Zack Calculation Initial Zack Date Initial Exam Date Initial Exam Provider Initial Ultrasound Date Last Menstrual Period Date Ultra Sound Weeks Gestation 0 Eighteen To Twenty Week Zack Update Ultra Sound Date Fundal Height At Umbil Quickening Date Ultra Sound Latest Weeks Gestation Final Zack Confirmed By Final Zack Confirmed Date Final Zack Date Ultra Sound Latest Days Gestation 0 0 Menstrual History Last Menstrual Date Menses Monthly On Bcp Conception Prior Menses Frequency Hcg Plus Date Menarche Onset Age Delivery Information Delivery Date Delivery Type Labor Anesthesia Weeks Gestation Incision Type Labor Labor Length Hrs Delivered By Post Complications Tubal Sterilization Discharge Date Comments 9 40 Discharge Information Feeding Method Contraceptive Method Maternal HG B and HCT Levels
--- NOTE | 2025-06-11 08:02 | WPDANESEPPF ---
Anes - Initial Pre Proc Eval Procedure: Operation Date: 06/11/25 10:00 Proposed Procedures p Colonoscopy - Mando Wang MD Date/Time: 06/11/25 08:02 Surgeon: Mando Wang MD Pre Op Diagnosis: Hemorrhage of anus and rectum Patient Data Age: 45 Gender: F Height: 1.83 m Weight: 154 kg Allergies Allergy/AdvReac Type Severity Reaction Status Date / Time famotidine Allergy Mild Rash Verified 05/24/25 14:34 Home Medications ?Medication ?Instructions ?Recorded ?Confirmed ?Type estradiol 0.0375 mg/24 hr See Rx Instructions .Route .COMPLEX 08/19/24 05/24/25 History semiweekly transdermal patch (Marlyn) buspirone 30 mg tablet See Rx Instructions .Route 01/15/25 05/24/25 Rx .COMPLEX #60 tabs tramadol 50 mg tablet 50 mg PO Q8H PRN pain #60 tabs 03/08/25 05/24/25 Rx escitalopram oxalate 20 mg tablet 20 mg PO DAILY #30 tabs 03/23/25 05/24/25 Rx methocarbamol 750 mg tablet 750 mg PO TID PRN back pain #45 04/29/25 05/24/25 Rx tabs naproxen 500 mg tablet 500 mg PO BID #60 tabs 05/17/25 05/24/25 Rx Patient hx anesthesia problems: none Family hx anesthesia problems: none Results Review: All pre-operative results and documents have been reviewed as part of the pre-operative evaluation. [facility] Past Medical History Medical History (Updated 06/11/25 @ 08:03 by Geo Gramajo DO) Hepatic steatosis Hx of cancer of uterus Closed left ankle fracture Cholecystectomy planned Surgical History Surgical History H/O: hysterectomy History of cholecystectomy H/O dilation and curettage H/O tubal ligation Family History Family History Mother Family history of malignant neoplasm of uterus Family history of malignant neoplasm of ovary Grandparent Cerebrovascular accident Father No problems noted. Other Family history of malignant neoplasm Social History Social History Smoking packs per day: 1 Smoking cigarettes per day: 20.0 Years smoked: 20 Smoking pack-years: 20.00 Smoking status: Former smoker Tobacco type: cigarettes Second hand tobacco smoke exposure: No Smoking end date: 04/07/22 Additional smoking assessment comments: quit 1 year ago 2020 Alcohol intake: current Substance use: never Substance use type: does not use Do You Feel Safe in your Home?: Yes Lack of Transportation: No Lack of Food: Sometimes True Current Housing: I Have Housing Concerned About Future Housing: No Difficulty Paying Gas/Electric Bills: YES Difficulty Paying for Meds: No Currently Unemployed: No Education: High School Diploma/GED Difficulty w/ Childcare or Family Care: No Living arrangements: with family Occupation/Education: occupation 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 Informed Consent: The patient's anesthetic plan and its attendant risks and benefits were discussed with the patient/family/POA. Questions were solicited and answers provided to the satisfaction of the patient/family/POA.
[2025-06-11 08:47] VITALS: BP 124/78; PULSE 68; RESP 18; TEMP 36.2; O2SAT 100
[2025-06-11] MEDS: LACTATED RINGERS 1,000 ML 150 ML IV CONT (08:58)
--- NOTE | 2025-06-11 09:02 | P.HP_ITS ---
History of Present Illness History of Present Illness Consent: Risks, benefits, and alternatives have been discussed and questions answered. Patient agrees to proceed with procedure. Chief complaint: Hemorrhage of anus and rectum Narrative: Lilian Haynes is a 45 year old female here for first colonoscopy, noted blood in stools Review of Systems Review of Systems: All systems reviewed & are unremarkable except as noted in HPI and below PMFSH Past Medical History Medical History (Updated 06/11/25 @ 08:03 by Geo Gramajo DO) Hepatic steatosis Hx of cancer of uterus Closed left ankle fracture Cholecystectomy planned Surgical History Surgical History H/O: hysterectomy History of cholecystectomy H/O dilation and curettage H/O tubal ligation Family History Family History Mother Family history of malignant neoplasm of uterus Family history of malignant neoplasm of ovary Grandparent Cerebrovascular accident Father No problems noted. Other Family history of malignant neoplasm Social History Social History Smoking packs per day: 1 Smoking cigarettes per day: 20.0 Years smoked: 20 Smoking pack-years: 20.00 Smoking status: Former smoker Tobacco type: cigarettes Second hand tobacco smoke exposure: No Smoking end date: 04/07/22 Additional smoking assessment comments: quit 1 year ago 2020 Alcohol intake: current Substance use: never Substance use type: does not use Do You Feel Safe in your Home?: Yes Lack of Transportation: No Lack of Food: Sometimes True Current Housing: I Have Housing Concerned About Future Housing: No Difficulty Paying Gas/Electric Bills: YES Difficulty Paying for Meds: No Currently Unemployed: No Education: High School Diploma/GED Difficulty w/ Childcare or Family Care: No Living arrangements: with family Occupation/Education: occupation 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 Gender identity (if verbalized by the patient): Female Spiritual care concerns: No Meds Home Medications and Allergies Home Medications ?Medication ?Instructions ?Recorded ?Confirmed ?Type estradiol 0.0375 mg/24 hr See Rx Instructions .Route .COMPLEX 08/19/24 06/11/25 History semiweekly transdermal patch (Marlyn) buspirone 30 mg tablet See Rx Instructions .Route 01/15/25 06/11/25 Rx .COMPLEX #60 tabs tramadol 50 mg tablet 50 mg PO Q8H PRN pain #60 tabs 03/08/25 06/11/25 Rx escitalopram oxalate 20 mg tablet 20 mg PO DAILY #30 tabs 03/23/25 06/11/25 Rx methocarbamol 750 mg tablet 750 mg PO TID PRN back pain #45 04/29/25 05/24/25 Rx tabs naproxen 500 mg tablet 500 mg PO BID #60 tabs 05/17/25 06/11/25 Rx Allergies Allergy/AdvReac Type Severity Reaction Status Date / Time famotidine Allergy Mild Rash Verified 06/11/25 08:44 Vital Signs Vital Signs - 24 hr 06/11/25 08:47 Temperature 97.1 F L Pulse Rate 68 Respiratory Rate 18 Blood Pressure 124/78 Pulse Oximetry 100 Oxygen Delivery Room Air Exam Const: General: comfortable and no acute distress HENMT: Face/Nose/Sinus: Normal nares present Eyes: General: appearance normal, both eyes and all related structures Neck: Neck: no JVD Resp: Auscultation: clear to auscultation bilaterally Cardio: Rate: regular rate Rhythm: regular rhythm GI: Inspection: non-distended GI Palp: Yes Soft to palpation Skin: General skin exam: normal color Neuro: Speech: normal speech Extrem: General: normal to inspection Psych: Mental Status: mental status grossly normal Assessment and Plan Assessment and plan (1) Rectal bleeding: Code(s): K62.5 - Hemorrhage of anus and rectum Status: Acute Assessment and Plan: colonoscopy
[2025-06-11 09:22] VITALS: BP 94/49; PULSE 60; RESP 20; O2SAT 100
[2025-06-11 09:32] VITALS: BP 98/61; PULSE 61; RESP 17; O2SAT 100
[2025-06-11 09:42] VITALS: BP 97/62; PULSE 62; RESP 18; O2SAT 100
== END 2025-06-11 09:55 | disposition home or self-care (01) ==
PROVIDERS: PCP Nurse Practitioner; Referring Provider Nurse Practitioner; Visit Provider Internal Medicine Gastroenterology
PROC: 0DJD8ZZ Inspection of Lower Intestinal Tract, Via Natural or Artificial Opening Endoscopic (ICD-10-PCS; CPT 45378; principal; 2025-06-11 10:00)
DX: K64.8 Other hemorrhoids (principal); E66.01 Morbid (severe) obesity due to excess calories; Z68.42 Body mass index [BMI] 45.0-49.9, adult; Z79.891 Long term (current) use of opiate analgesic; Z79.1 Long term (current) use of non-steroidal anti-inflammatories (NSAID); Z98.890 Other specified postprocedural states; Z98.51 Tubal ligation status; Z90.49 Acquired absence of other specified parts of digestive tract; Z87.891 Personal history of nicotine dependence; Z85.42 Personal history of malignant neoplasm of other parts of uterus; Z80.49 Family history of malignant neoplasm of other genital organs; Z80.41 Family history of malignant neoplasm of ovary
CPT/HCPCS: 45378; J2704; J7120